=== PATIENT | male | born 1960 | race African-American/Black ===

== ENCOUNTER → 2016-11-22 | Day surgery (SDC) | payer MEDICARE, MEDICAID ==
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
[~2016-11-22] MED LIST: Buffered Lidocaine 1% SYR 3ML* 3 ML/SYR SYRINGE INTRADERM ONE; Buffered Lidocaine 1% SYR 3ML* 3 ML/SYR SYRINGE ONE; Bupivacaine 0.5% W/EPI SDV* 30 ML VIAL ONE; Ketorolac INJ* 30 MG/ML 1 ML VIAL IV PRN; Lidocaine 1% INJ* 10 MG/ML 30 ML SDV ONE; Lidocaine 2% MPF* 2 ML VIAL ONE; Midazolam* 1 MG/ML 2 ML VIAL (2 MG) ONE; Ondansetron INJ* 2 MG/ML VIAL IV PRN; Propofol* 10 MG/ML 20 ML BTL IV PUSH ONE; ceFAZolin 2 GM PREMIX (*) 2 GM/50 ML BAG IVPB ONE; fentaNYL* 50 MCG/ML 2 ML VIAL (100 MCG VIAL) IV PRN; fentaNYL* 50 MCG/ML 2 ML VIAL (100 MCG VIAL) ONE
[2016-11-22 14:44] VITALS: BP 165/95
--- NOTE | 2016-11-23 08:18 | OP ---
CC: Dr. Eng; Dr. Willie Staples OPERATIVE REPORT: DATE OF OPERATION: 11/22/16 DATE OF : 60 SURGEON: Charli Eng MD. FLAT BED KNITTER: None. ANESTHESIOLOGIST: Dr. Singh. ANESTHESIA: General anesthetic, local infiltration. PRE-OP DIAGNOSIS: Mass of left thigh. POST-OP DIAGNOSIS: Mass of left thigh. OPERATIVE PROCEDURE: Excision of mass of left thigh. DESCRIPTION OF PROCEDURE: The patient is placed in the lateral position and everything appropriatel y padded and positioned and secured to the table. Sterile prep was carried out and local anesthetic was utilized and Kristen Hugger warmer, compression stockings, and intravenous antibiotics were also i n place. An elliptical incision, approximately 5 x 10 cm, was created and lipomatous mass was multi lobulated and was excised in its entirety. The entire previous ulcerated lesion was also removed. This was sent in formalin for pathologic evaluation. The incision was closed with 4-0 Vicryl for th e subcutaneum and 3-0 Prolene for the skin. Sterile dressing was placed. He tolerated this well wa s brought to recovery in good condition. There were no complications. No drains. Pathologic speci men was left thigh mass. Sponge and instrument counts correct. Estimated blood loss was 30 mL. [id number]/[facility] #: [id number]
== END | disposition home or self-care (01) ==
LOC: OR 10:35
PROVIDERS: ATTEND Surgery
DX: D17.24 Benign lipomatous neoplasm of skin and subcutaneous tissue of left leg (principal); Z79.82 Long term (current) use of aspirin; I10 Essential (primary) hypertension; G47.33 Obstructive sleep apnea (adult) (pediatric); Z87.891 Personal history of nicotine dependence; J44.9 Chronic obstructive pulmonary disease, unspecified; R52 Pain, unspecified; Z99.81 Dependence on supplemental oxygen
CPT/HCPCS: 88304; J0690; J2250; J2704; J3010

== ENCOUNTER 2017-03-21 20:47 | Observation (INO) | payer MEDICARE, MEDICAID ==
[2017-03-21] MEDS ORDERED: cefTRIAXone(*) 1 GM in NS 0.9% 50 ML* 50 ML IVPB ONE (20:51)
[2017-03-21] MEDS ORDERED: Azithromycin IV(*) 500 MG in NS 0.9% 250 ML* 250 ML IVPB ONE (20:51)
[2017-03-21] MEDS ORDERED: methylPREDNISolone 125 MG* 2 ML VIAL IV ONE (20:51)
[2017-03-21] MEDS ORDERED: Albuterol/Ipratropium NEB.SOL* Albuterol 2.5 MG/Ipratropium 0.5 MG 3 ML INH ONE (20:52)
[2017-03-21] MEDS ORDERED: NS 0.9% 1000 ML* 1,000 ML IV SCH (21:00)
[2017-03-21 21:13] LABS: PCO2 Arterial 56 mmHg (35-45)
[2017-03-21 21:24] LABS: Hematocrit 40 % (42-52); Mean Corpuscular HGB Conc 30 g/dl (31-36); Mean Corpuscular Hemoglobin 22 pg (27-31); Mean Corpuscular Volume 73 fL (80-94); Mean Platelet Volume 10 um3 (7.4-10.4); Red Blood Count 5.46 10^6/ul (4.0-5.4); Red Cell Distribution Width 19 % (10.5-15); White Blood Count 11.4 10^3/ul (3.5-10.8)
[2017-03-21 21:28] LABS: ALT 20 U/L (7-52); Alkaline Phosphatase 73 U/L (34-104); Blood Urea Nitrogen 14 mg/dL (6-24); C Reactive Protein 2.85 mg/L (< 5.00); CO2 Carbon Dioxide 27 mmol/L (22-32); Calcium 8.9 mg/dL (8.6-10.3); Chloride 104 mmol/L (101-111); Creatine Kinase 667 U/L (10-223); EGFR African American 82.9 (>60); EGFR Non-African American 64.5 (>60); Globulin 3.3 g/dL (2-4); Glucose 121 mg/dL (70-100); Lipase 17 U/L (11.0-82.0); Magnesium 2.2 mg/dL (1.9-2.7); Sodium 140 mmol/L (133-145); Total Protein 7.3 g/dL (6.4-8.9)
[2017-03-21 21:31] LABS: Add Diff/Slide Review? Slide Review Added; Comments Flag Yes
--- NOTE | 2017-03-21 21:40 | RAD ---
HISTORY: Shortness of breath COMPARISONS: May 11, 2016 VIEWS:1: Single frontal portable view of the chest at 9:20 PM FINDINGS: LINES AND TUBES: None. CARDIOMEDIASTINAL SILHOUETTE: The cardiomediastinal silhouette is normal for portable technique. PLEURA: The costophrenic angles are sharp. No pleural abnormalities are noted. LUNG PARENCHYMA: There is prominence of the central pulmonary vasculature ABDOMEN: The upper abdomen is clear. There is no subphrenic gas. BONES AND SOFT TISSUES: No bone or soft tissue abnormalities are noted. IMPRESSION: PULMONARY VASCULAR CONGESTION
[2017-03-21 22:09] LABS: TSH (Thyroid Stimulating Horm) 1.39 mcIU/mL (0.34-5.60)
[2017-03-21 22:13] LABS: Hypochromasia 2+; Target Cells 1+
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
[2017-03-21] MEDS ORDERED: Ondansetron INJ* 2 MG/ML VIAL IV PRN (22:29)
[2017-03-21] MEDS ORDERED: Senna TAB PO PRN (22:29)
[2017-03-21] MEDS ORDERED: Docusate CAP* 100 MG PO PRN (22:29)
[2017-03-21] MEDS ORDERED: Al Hydrox/Mg Hydrox/Simet LIQ* 30 ML UDC PO PRN (22:29)
[2017-03-21] MEDS ORDERED: Acetaminophen TAB* 325 MG PO PRN (22:29)
[2017-03-21] MEDS ORDERED: Ipratropium 0.5MG/2.5ML NEB* 0.5 MG/2.5 ML NEB.SOLN INH PRN (22:33)
[2017-03-21] MEDS ORDERED: Morphine ORAL.SOLN 10 mg* 2 MG/ML UDC 5 ml PO PRN (22:33)
[2017-03-21] MEDS ORDERED: Cyclobenzaprine TAB* 10 MG PO PRN (22:35)
[2017-03-21] MEDS ORDERED: ALPRAZolam TAB* 0.5 MG PO PRN (22:35)
[2017-03-21] MEDS ORDERED: NS 0.9% 1000 ML* 1,000 ML IV ONE (22:36)
[2017-03-21 22:50] LABS: Alcohol < 10 mg/dL (<10)
[2017-03-22 00:31] LABS: Urine Bacteria Absent (Absent); Urine Bilirubin Negative (Negative); Urine Glucose Negative (Negative); Urine Nitrite Negative (Negative)
[2017-03-22 00:48] LABS: Benzodiazepine Urine Screen Presumptive Positive (None Detect)
[2017-03-22] MEDS: Morphine TAB Extended Release (*) 30 MG TAB.ER PO SCH ×2 (00:55→11:15)
[2017-03-22] MEDS: Budesonide NEB* 0.25 MG/2 ML NEB.SOLN INH SCH ×2 (01:16→09:26)
--- NOTE | 2017-03-22 01:21 | HP ---
HISTORY AND PHYSICAL: DATE OF ADMISSION: 03/21/17 TIME OF EVALUATION: 0. PRIMARY CARE PHYSICIAN: Willie Staples MD CHIEF COMPLAINT: Shortness of breath. HISTORY OF PRESENT ILLNESS: This is a 56-year-old male with past medical history of COPD and tobacco use, who presents to the emergency room with acute onset of shortness of breath, arrived here via EMS. The patient states he has been under a lot of significant stress recently. His father last year and his mother has progressively advanced Alzheimer's dementia. He was at her house doing work around her house when he developed some itching on his back. His daughter put some pain relief, anti-itch cream on it and acutely he became short of breath and could not breathe. He is not clear of other symptoms associated with it, but does not think he had any chest pain or nausea , no lip swelling, no tongue swelling. EMS was called. They placed him on BiPAP and the patient had labs, imaging. He was given DuoNeb, azithromycin, ceftriaxone, and Solu-Medrol, and was referred to the hospitalist service. On further evaluation, on my encounter, we took the BiPAP off and he is breathing calmly without any complaints of shortness of breath. He states he is overall weak. He says he has recently been seeing a injection molding process technician, Dr. Benítez, who has been titrating down his CPAP setting; he is not sure which. He denies any lower extremity swelling. No chest pain as mentioned. No nausea, vomiting, or diarrhea. No abdominal pain. Otherwise, remaining systems is negative. The patient is being admitted to [address] [place] [address] for acute onset of shortness of breath. Also, of note, he has no changes in his pills or medications or no new over-the- counter medications. PAST MEDICAL HISTORY: 1. History of COPD, complicated by emphysema and blebs and pneumothorax, states he has a history of multiple chest tubes placed, has led him to having chronic pain. 2. Chronic pain. 3. Obstructive sleep apnea, on CPAP. 4. Hypertension. 5. Anxiety. 6. The patient had an unresponsive episode back in May of 2016 in [place]. He states he was on vacation, he was found in the bathroom unresponsive. He states that it was due to taking pain medications and not using a CPAP at that time. 7. History of left hip replacement. MEDICATIONS: 1. Albuterol neb as needed. 2. Ipratropium neb as needed. 3. Budesonide neb b.i.d. 4. Albuterol MDI as needed. 5. Morphine extended release 30 mg p.o. b.i.d. 6. Morphine extended release 15 mg every 4 hours as needed for pain. 7. Alprazolam 1 mg q.6 hours as needed for anxiety. 8. Cyclobenzaprine as needed. 9. Omeprazole as needed. 10. Lisinopril 20 mg daily. 11. Atenolol at bedtime, is unclear of the dose. ALLERGIES: BUTORPHANOL, chest pain, burning in chest. FAMILY HISTORY: Father in June of 2016, unclear of the cause. Mother alive with Alzheimer's dementia. SOCIAL HISTORY: The patient as mentioned is a single parent, raising 5 children. He has been smoking for 40 years, quit 2 years ago but states he has been smoking on and off recently due to increase in stress. Rare alcohol use. His healthcare proxy is his daughter, Sirena Moore. Code status is full code. REVIEW OF SYSTEMS: As mentioned in the HPI. PHYSICAL EXAMINATION GENERAL: In no acute distress, resting comfortably. VITAL SIGNS: Temp is 98.4, pulse rate is 99, respiratory rate is 17, oxygen saturation 96% on 2 L, blood pressure 129/69. HEENT: Pupils are pinpoint and reactive, anicteric. Head: Normocephalic. Oropharynx: Mucous membranes are moist. NECK: Supple. No lymphadenopathy. RESPIRATORY: Diminished breath sounds. No wheezing, rhonchi, or rales. No increased work of breathing. CARDIAC: Regular rate and rhythm. No murmurs, rubs, or gallops. ABDOMEN: Soft, nontender, nondistended. EXTREMITIES: No clubbing, cyanosis, or edema. NEUROLOGIC: Oriented x3. No focal neurologic deficits. DIAGNOSTIC STUDIES/LAB DATA: White count 11.4, hemoglobin 12.0, hematocrit 40 , platelets 306. INR of 0.94. Blood gas: pH 7.31, PCO2 is 56, PO2 is 97. Sodium 140, potassium 4.5, bicarb 27, BUN 14, creatinine 1.17, glucose 121. Total CK is 667. Troponin is 0. TSH 1.39. BNP is 36. Radiographic data: Chest x-ray, pulmonary vascular congestion. EKG shows sinus tachycardia with no significant changes from prior EKG. ASSESSMENT AND PLAN: This is a 56-year-old male with a past medical history of chronic obstructive pulmonary disease, obstructive sleep apnea, and chronic pain , who presents to the emergency room with acute onset shortness of breath and feeling hot. Shortness of breath. Assessment: Acute onset after getting cream on his back, unclear if this was an allergic reaction, although not typical presentation without any other constitutional symptoms. He seems dramatically improved off the BiPAP. His blood work was relatively unremarkable. It does not appear to be a chronic obstructive pulmonary disease exacerbation or cardiac event. I wonder if this is a combination of anxiety in the setting of increase in stress and possibly an allergic reaction to the cream that he was given. Plan: We will admit him to telemetry, rule him out with troponins. We will continue his inhaler regimen. Hold off on any steroids at this time. I am going to check a urine tox screen and alcohol level and put in a Social Work consult for social support in the setting of high stress with significant family history of stress. CHRONIC MEDICAL PROBLEMS: 1. COPD. As mentioned, resume his inhaler regimen. 2. Obstructive sleep apnea. Continue his CPAP. 3. Anxiety. Continue his alprazolam. 4. Chronic pain. Continue his medications as prescribed. 5. Hypertension. The patient's blood pressures are low normal. We will hold his atenolol and lisinopril at this time. 6. FEN. [address] him on a heart-healthy diet. We will give him a 1 L of bolus at this time. 7. Code status. Full code. PATIENT TIME: Greater than 60 minutes was spent doing the history and physical ; more than half the time was spent in direct patient contact. CC: Willie Staples MD* [id number]/[facility] #: [id number] AJITH
[2017-03-22] MEDS: Albuterol 2.5 MG/3 ML NEB.SOL* (0.083%) INH PRN ×2 (03:44→13:16)
[2017-03-22 05:38] LABS: Hematocrit 34 % (42-52); Hemoglobin 10.4 g/dl (14.0-18.0); Mean Corpuscular HGB Conc 30 g/dl (31-36); Mean Corpuscular Hemoglobin 22 pg (27-31); Mean Platelet Volume 10 um3 (7.4-10.4); Red Blood Count 4.69 10^6/ul (4.0-5.4); Red Cell Distribution Width 19 % (10.5-15); White Blood Count 15.3 10^3/ul (3.5-10.8)
[2017-03-22 05:40] LABS: Comments Flag Yes; Mean Corpuscular Volume 74 fL (80-94)
[2017-03-22 05:52] LABS: BUN/Creatinine Ratio 14.1 (8-20); Calcium 8.4 mg/dL (8.6-10.3); EGFR African American 70.3 (>60); EGFR Non-African American 54.7 (>60); Potassium 4.5 mmol/L (3.5-5.0)
[2017-03-22] MEDS: Heparin VIAL(*) 5000 UNITS/ML VIAL (FIVE THOUSAND) SUBCUT SCH ×2 (05:56→14:26)
[2017-03-22] MEDS ORDERED: Omeprazole CAP* 20 MG PO SCH (06:00)
[2017-03-22 14:16] VITALS: BP 145/80
--- NOTE | 2017-03-22 15:20 | PN ---
Subjective Date of Service: 03/22/17 Interval History: Pt is feeling better now but states this AM he still felt like he needed to use his CPAP to help breath comfortably. Objective Active Medications: Acetaminophen (Tylenol Tab*) 650 mg PO Q4H PRN PRN Reason: FEVER/PAIN Al Hydrox/Mg Hydrox/Simethicone (Maalox Plus*) 30 ml PO Q6H PRN PRN Reason: INDIGESTION Albuterol (Ventolin 2.5 Mg/3 Ml Neb.Briana*) 2.5 mg INH Q2H PRN PRN Reason: SOB/WHEEZING Last Admin: 03/22/17 13:16 Dose: 2.5 mg Alprazolam (Xanax Tab*) 0.5 mg PO Q6H PRN PRN Reason: ANXIETY Budesonide (Pulmicort Neb*) 0.25 mg INH RT.BID [facility] Last Admin: 03/22/17 09:26 Dose: Not Given Cyclobenzaprine HCl (Flexeril Tab*) 10 mg PO BID PRN PRN Reason: SPASMS Docusate Sodium (Colace Cap*) 100 mg PO BID PRN PRN Reason: CONSTIPATION Heparin Sodium (Porcine) (Heparin Vial(*)) 5,000 units SUBCUT Q8HR [facility] Last Admin: 03/22/17 14:26 Dose: 5,000 units Sodium Chloride (Ns 0.9% 1000 Ml*) 1,000 mls @ 150 mls/hr IV PER RATE [facility] Last Admin: 03/21/17 21:00 Dose: 150 mls/hr Ipratropium [place] (Atrovent 0.5 Mg Neb.Briana*) 0.5 mg INH Q4H PRN PRN Reason: SOB/WHEEZING Last Admin: 03/22/17 13:17 Dose: 0.5 mg Morphine Sulfate (Morphine Oral.Soln 10 Mg*) 15 mg PO Q6H PRN PRN Reason: PAIN Last Admin: 03/22/17 15:08 Dose: 15 mg Morphine Sulfate (Ms Contin(*)) 30 mg PO Q12H [facility] Last Admin: 03/22/17 11:15 Dose: 30 mg Omeprazole (Prilosec Cap*) 20 mg PO 0600 [facility] Last Admin: 03/22/17 05:55 Dose: 20 mg Ondansetron HCl (Zofran Inj*) 4 mg IV Q4H PRN PRN Reason: NAUSEA/VOMITING Senna (Senokot Tab*) 1 tab PO BID PRN PRN Reason: CONSTIPATION Vital Signs 03/21/17 03/21/17 03/21/17 22:30 22:37 22:45 Temperature 98.4 F Pulse Rate 99 102 98 Respiratory 17 18 17 Rate Blood Pressure 129/69 129/69 115/80 (mmHg) O2 Sat by Pulse 96 95 Oximetry 03/21/17 03/21/17 03/22/17 22:57 23:11 00:55 Temperature 97.5 F Pulse Rate 96 88 Respiratory 18 18 20 Rate Blood Pressure 115/80 129/85 (mmHg) O2 Sat by Pulse 96 98 Oximetry 03/22/17 03/22/17 03/22/17 01:19 01:21 02:55 Temperature Pulse Rate 90 89 Respiratory 17 16 20 Rate Blood Pressure (mmHg) O2 Sat by Pulse 99 98 Oximetry 03/22/17 03/22/17 03/22/17 03:46 04:05 07:29 Temperature 97.8 F 98.3 F Pulse Rate 97 88 79 Respiratory 20 18 20 Rate Blood Pressure 148/86 140/74 (mmHg) O2 Sat by Pulse 84 98 96 Oximetry 03/22/17 03/22/17 03/22/17 08:00 11:10 11:15 Temperature 97.7 F Pulse Rate 79 Respiratory 18 20 18 Rate Blood Pressure 145/80 (mmHg) O2 Sat by Pulse 97 Oximetry 03/22/17 03/22/17 13:21 15:08 Temperature Pulse Rate 80 Respiratory 18 Rate Blood Pressure (mmHg) O2 Sat by Pulse Oximetry Oxygen Devices in Use Now: Nasal Cannula - 2L-97% Appearance: Middle aged male sitting up in bed, NAD Eyes: No Scleral Icterus Ears/Nose/Mouth/Throat: Mucous Membranes Moist Respiratory: Symmetrical Chest Expansion and Respiratory Effort, - - few bibasilar crackles, diminished breath sounds in all lung thompson Cardiovascular: NL Sounds; No Murmurs; No JVD, RRR, No Edema Abdominal: NL Sounds; No Tenderness; No Distention Extremities: No Clubbing, Cyanosis Skin: No Nodules or Sclerosis, - - Pt has scarring noted on his back from prior scratching- no obvious rash despite the patient stating his back was feeling itchy and like it was burning Neurological: Alert and Oriented x 3 Result Diagrams: 03/22/17 05:08 03/22/17 05:08 Additional Lab and Data: Lab Results 03/21/17 03/21/17 03/21/17 Range/Units 20:56 20:56 20:56 WBC 11.4 H (3.5-10.8) 10^3/ul RBC 5.46 H (4.0-5.4) 10^6/ul Hgb 12.0 L (14.0-18.0) g/dl Hct 40 L (42-52) % MCV 73 L (80-94) fL MCH 22 L (27-31) pg MCHC 30 L (31-36) g/dl RDW 19 H (10.5-15) % Plt Count 306 (150-450) 10^3/ul MPV 10 (7.4-10.4) um3 Neut % (Auto) 42.8 (38-83) % Lymph % (Auto) 44.9 (25-47) % [place] % (Auto) 8.7 (1-9) % Eos % (Auto) 3.2 (0-6) % Baso % (Auto) 0.4 (0-2) % Absolute Neuts (auto) 4.9 (1.5-7.7) 10^3/ul Absolute Lymphs (auto) 5.1 H (1.0-4.8) 10^3/ul Absolute Monos (auto) 1.0 H (0-0.8) 10^3/ul Absolute Eos (auto) 0.4 (0-0.6) 10^3/ul Absolute Basos (auto) 0 (0-0.2) 10^3/ul Absolute Nucleated RBC 0.02 10^3/ul Nucleated RBC % 0.2 Normal RBC Morphology Not Reportable Hypochromasia 2+ Target Cells 1+ INR (Anticoag Therapy) 0.94 (0.89-1.11) APTT 27.0 (26.0-36.3) seconds ABG pH (7.35-7.45) ABG pCO2 (35-45) mmHg ABG pO2 (80-100) mmHg ABG HCO3 (19-31) mmol/L ABG O2 Saturation (95-98) % ABG Base Excess (-2.0-2.0) Sodium 140 (133-145) mmol/L Potassium TNP Chloride 104 (101-111) mmol/L Carbon Dioxide 27 (22-32) mmol/L Anion Gap TNP BUN 14 (6-24) mg/dL Creatinine 1.17 (0.67-1.17) mg/dL Est GFR ( Amer) 82.9 (>60) Est GFR (Non-Af Amer) 64.5 (>60) BUN/Creatinine Ratio 12.0 (8-20) Glucose 121 H (70-100) mg/dL Lactic Acid (0.5-2.0) mmol/L Calcium 8.9 (8.6-10.3) mg/dL Magnesium 2.2 (1.9-2.7) mg/dL Total Bilirubin 0.20 (0.2-1.0) mg/dL AST TNP ALT 20 (7-52) U/L Alkaline Phosphatase 73 (34-104) U/L Total Creatine Kinase 667 H (10-223) U/L CK-MB (CK-2) 4.9 (0.6-6.3) ng/mL Troponin I 0.00 (<0.04) ng/mL C-Reactive Protein 2.85 (< 5.00) mg/L B-Natriuretic Peptide ( - 100) pg/mL Total Protein 7.3 (6.4-8.9) g/dL Albumin 4.0 (3.2-5.2) g/dL Globulin 3.3 (2-4) g/dL Albumin/Globulin Ratio 1.2 (1-3) Lipase 17 (11.0-82.0) U/L TSH 1.39 (0.34-5.60) mcIU/mL 03/21/17 03/21/17 03/21/17 Range/Units 20:56 20:56 21:05 WBC (3.5-10.8) 10^3/ul RBC (4.0-5.4) 10^6/ul Hgb (14.0-18.0) g/dl Hct (42-52) % MCV (80-94) fL MCH (27-31) pg MCHC (31-36) g/dl RDW (10.5-15) % Plt Count (150-450) 10^3/ul MPV (7.4-10.4) um3 Neut % (Auto) (38-83) % Lymph % (Auto) (25-47) % [place] % (Auto) (1-9) % Eos % (Auto) (0-6) % Baso % (Auto) (0-2) % Absolute Neuts (auto) (1.5-7.7) 10^3/ul Absolute Lymphs (auto) (1.0-4.8) 10^3/ul Absolute Monos (auto) (0-0.8) 10^3/ul Absolute Eos (auto) (0-0.6) 10^3/ul Absolute Basos (auto) (0-0.2) 10^3/ul Absolute Nucleated RBC 10^3/ul Nucleated RBC % Normal RBC Morphology Hypochromasia Target Cells INR (Anticoag Therapy) (0.89-1.11) APTT (26.0-36.3) seconds ABG pH 7.31 L (7.35-7.45) ABG pCO2 56 H (35-45) mmHg ABG pO2 97 (80-100) mmHg ABG HCO3 25.6 (19-31) mmol/L ABG O2 Saturation 97.5 (95-98) % ABG Base Excess 0.9 (-2.0-2.0) Sodium (133-145) mmol/L Potassium Chloride (101-111) mmol/L Carbon Dioxide (22-32) mmol/L Anion Gap BUN (6-24) mg/dL Creatinine (0.67-1.17) mg/dL Est GFR ( Amer) (>60) Est GFR (Non-Af Amer) (>60) BUN/Creatinine Ratio (8-20) Glucose (70-100) mg/dL Lactic Acid 1.6 (0.5-2.0) mmol/L Calcium (8.6-10.3) mg/dL Magnesium (1.9-2.7) mg/dL Total Bilirubin (0.2-1.0) mg/dL AST ALT (7-52) U/L Alkaline Phosphatase (34-104) U/L Total Creatine Kinase (10-223) U/L CK-MB (CK-2) (0.6-6.3) ng/mL Troponin I (<0.04) ng/mL C-Reactive Protein (< 5.00) mg/L B-Natriuretic Peptide 36 ( - 100) pg/mL Total Protein (6.4-8.9) g/dL Albumin (3.2-5.2) g/dL Globulin (2-4) g/dL Albumin/Globulin Ratio (1-3) Lipase (11.0-82.0) U/L TSH (0.34-5.60) mcIU/mL 03/21/17 Range/Units 21:53 WBC (3.5-10.8) 10^3/ul RBC (4.0-5.4) 10^6/ul Hgb (14.0-18.0) g/dl Hct (42-52) % MCV (80-94) fL MCH (27-31) pg MCHC (31-36) g/dl RDW (10.5-15) % Plt Count (150-450) 10^3/ul MPV (7.4-10.4) um3 Neut % (Auto) (38-83) % Lymph % (Auto) (25-47) % [place] % (Auto) (1-9) % Eos % (Auto) (0-6) % Baso % (Auto) (0-2) % Absolute Neuts (auto) (1.5-7.7) 10^3/ul Absolute Lymphs (auto) (1.0-4.8) 10^3/ul Absolute Monos (auto) (0-0.8) 10^3/ul Absolute Eos (auto) (0-0.6) 10^3/ul Absolute Basos (auto) (0-0.2) 10^3/ul Absolute Nucleated RBC 10^3/ul Nucleated RBC % Normal RBC Morphology Hypochromasia Target Cells INR (Anticoag Therapy) (0.89-1.11) APTT (26.0-36.3) seconds ABG pH (7.35-7.45) ABG pCO2 (35-45) mmHg ABG pO2 (80-100) mmHg ABG HCO3 (19-31) mmol/L ABG O2 Saturation (95-98) % ABG Base Excess (-2.0-2.0) Sodium (133-145) mmol/L Potassium 4.5 Chloride (101-111) mmol/L Carbon Dioxide (22-32) mmol/L Anion Gap BUN (6-24) mg/dL Creatinine (0.67-1.17) mg/dL Est GFR ( Amer) (>60) Est GFR (Non-Af Amer) (>60) BUN/Creatinine Ratio (8-20) Glucose (70-100) mg/dL Lactic Acid (0.5-2.0) mmol/L Calcium (8.6-10.3) mg/dL Magnesium (1.9-2.7) mg/dL Total Bilirubin (0.2-1.0) mg/dL AST 24 ALT (7-52) U/L Alkaline Phosphatase (34-104) U/L Total Creatine Kinase (10-223) U/L CK-MB (CK-2) (0.6-6.3) ng/mL Troponin I (<0.04) ng/mL C-Reactive Protein (< 5.00) mg/L B-Natriuretic Peptide ( - 100) pg/mL Total Protein (6.4-8.9) g/dL Albumin (3.2-5.2) g/dL Globulin (2-4) g/dL Albumin/Globulin Ratio (1-3) Lipase (11.0-82.0) U/L TSH (0.34-5.60) mcIU/mL Assess/Plan/Problems-Billing Mr Ahuja is a 56 yo M who has a h/o severe COPD who presented to the ER with c/ o severe sudden acute SOB after applying a pain reliever cream on his back. - Patient Problems (1) Shortness of breath Current Visit: Yes Status: Acute Code(s): R06.02 - SHORTNESS OF BREATH SNOMED Code(s): 529085627 Comment: Unclear what drove his SOB last evening. I question if this may have been an allergic reaction. His breathing is now back to baseline. I also question if his severe SOB may have been related to anxiety. The patient denies this however. (2) Emphysema/COPD Current Visit: Yes Status: Chronic Code(s): J43.9 - EMPHYSEMA, UNSPECIFIED SNOMED Code(s): 26269501 Comment: No signs of exacerbation at this time. Continue home medication regimen. (3) Anxiety Current Visit: Yes Status: Chronic Code(s): F41.9 - ANXIETY DISORDER, UNSPECIFIED SNOMED Code(s): 04932718 Comment: Continue prn benzodiazepines. (4) HTN (hypertension) Current Visit: Yes Status: Chronic Priority: High Code(s): I10 - ESSENTIAL (PRIMARY) HYPERTENSION SNOMED Code(s): 96144124 Comment: BP is under fair control. Continue current home medication regimen. (5) Sleep apnea Current Visit: Yes Status: Chronic Code(s): G47.30 - SLEEP APNEA, UNSPECIFIED SNOMED Code(s): 00052263 Comment: Continue CPAP at home settings. (6) DVT prophylaxis Current Visit: Yes Status: Acute Code(s): UCS6034 - SNOMED Code(s): 076372092 Comment: SQ heparin Status and Disposition: d/c home
--- NOTE | 2017-03-23 04:35 | DS ---
DISCHARGE SUMMARY: DATE OF ADMISSION: 03/21/17 DATE OF DISCHARGE: 03/22/17 PRIMARY CARE PROVIDER: Dr. Staples. CARRY ALL DRIVER: Dr. Benítez. PRINCIPAL DIAGNOSIS: Acute shortness of breath of unclear etiology - possible allergic reaction. SECONDARY DIAGNOSES: 1. Severe chronic obstructive pulmonary disease. 2. Anxiety. 3. Obstructive sleep apnea. 4. Hypertension. DISCHARGE MEDICATIONS: 1. MiraLax 17 g p.o. daily. 2. Budesonide 0.5 mg inhaled twice daily. 3. Atenolol 25 mg p.o. daily. 4. Omeprazole 20 mg p.o. daily. 5. Lisinopril 20 mg p.o. daily. 6. Ipratropium 1 neb inhaled q.4 hours p.r.n. shortness of breath. 7. Diazepam 5 mg p.o. q.h.s. p.r.n. anxiety. 8. Flexeril 10 mg p.o. b.i.d. p.r.n. spasm. 9. Albuterol 2 puffs inhaled q.4 hours p.r.n. shortness of breath. 10. Xanax 1 mg p.o. q.8 hours p.r.n. anxiety. HOSPITAL COURSE: Mr. Ahuja is a 56-year-old male, with a known history of severe COPD who presented to the emergency room on 03/21/17 with complaints of severe shortness of breath. The patient states that he had a usual flare of his back itching and asked his stepdaughter to apply some lotion to his back. She applied both Aveeno eczema relief lotion as well as inadvertently an arthritis pain relief cream. The patient states that within 5 minutes of having these creams applied to his back, he began to have severe shortness of breath. He states this was much more severe than even when he had collapsed lung. The patient denied any associated anxiety with this and states that this was just very severe shortness of breath. He was placed on BiPAP and brought to the emergency room. After arriving in the ER, the patient was liberated from BiPAP and was breathing quite comfortably. He was admitted for further monitoring and evaluation of his acute shortness of breath. The patient has done well since coming off the BiPAP. He did state that on the morning of discharge, he felt like he still needed the CPAP that he usually uses at home to help "get the air in." He does state that his breathing feels more comfortable now. I have explained to the patient that it is not completely clear as to what caused his severe episode of shortness of breath, but possibly an allergic reaction could explain this. I recommended that he not use the creams that were applied to his back just prior to this event happening. In terms of the itching of his back, this has been a longstanding problem he states going back what sounds to be a decade. The patient can follow up as an outpatient for this. There are no signs of COPD exacerbation. At this point, the patient is felt to be stable for discharge to home. FOLLOWUP CONCERNS: The patient is being discharged to home today, 03/22/17. He is to follow up with Dr. Staples in the next 4 to 7 days. ACTIVITY LEVEL: As tolerated. DIET: Regular. CONDITION ON DISCHARGE: Stable. TIME SPENT: Twenty five minutes was spent discharging this patient. CC: Dr. Staples; Dr. Benítez* [id number]/[facility] #: [id number] [facility]
== END 2017-03-22 17:46 | disposition home or self-care (01) ==
LOC: ED 20:47 → MEDTELE 22:29
PROVIDERS: ADMIT Pediatrics; ATTEND Hospitalist
DX: R06.02 Shortness of breath (principal); J44.9 Chronic obstructive pulmonary disease, unspecified; F41.9 Anxiety disorder, unspecified; G47.33 Obstructive sleep apnea (adult) (pediatric); I10 Essential (primary) hypertension; R00.0 Tachycardia, unspecified; Z79.899 Other long term (current) drug therapy; Z88.8 Allergy status to other drugs, medicaments and biological substances; F17.210 Nicotine dependence, cigarettes, uncomplicated
CPT/HCPCS: 36415; 36600; 71010; 80048; 80053; 80307; 80320; 81003; 81015; 82550; 82553; 82803; 83605; 83690; 83735; 83880; 84443; 84484; 85025; 85610; 85730; 86140; 87040; 93005; 94640; 94660; 94760; 94762; 96365; 96366; 96367; 96372; 96375; 99291; A9270-GY; G0378; G0480; J0456; J0696; J1644; J2930; J7644

== ENCOUNTER 2017-12-22 19:54 | Emergency (ER) | payer MEDICARE, MEDICAID ==
[2017-12-22] MEDS ORDERED: diPHENhydraMINE IV* 50 MG/ML 1 ml VIAL (BENADRYL) IV ONE (20:56)
[2017-12-22] MEDS ORDERED: methylPREDNISolone 125 MG* 2 ML VIAL IV ONE (20:57)
[2017-12-22] MEDS ORDERED: Famotidine IV* 10 MG/ML 2 ML (20 mg) IV SLOW PU ONE (20:57)
[2017-12-22] MEDS ORDERED: Albuterol/Ipratropium NEB.SOL* Albuterol 2.5 MG/Ipratropium 0.5 MG 3 ML INH ONE (20:57)
[2017-12-22] MEDS ORDERED: Albuterol 2.5 MG/3 ML NEB.SOL* (0.083%) INH ONE (20:57)
[2017-12-22] MEDS ORDERED: NS 0.9% 1000 ML* 1,000 ML IV ONE (20:58)
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
[2017-12-22 23:31] VITALS: BP 121/82
== END 2017-12-22 23:10 | disposition home or self-care (01) ==
LOC: ED 19:54
DX: T78.40XA Allergy, unspecified, initial encounter (principal); R06.02 Shortness of breath; R42 Dizziness and giddiness; Z86.79 Personal history of other diseases of the circulatory system; Z87.19 Personal history of other diseases of the digestive system; X58.XXXA Exposure to other specified factors, initial encounter
CPT/HCPCS: 94640; 94760; 96374; 96375; 99283; A9270-GY; J1200; J2930

== ENCOUNTER 2018-01-11 18:51 | Emergency (ER) | payer MEDICARE, MEDICAID ==
[2018-01-11] MEDS ORDERED: Amoxicillin/Clavulanate TAB* 500 MG PO ONE (19:44)
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
[2018-01-11 20:20] VITALS: BP 103/65
== END 2018-01-11 20:19 | disposition home or self-care (01) ==
LOC: ED 18:51
DX: R22.0 Localized swelling, mass and lump, head (principal); F17.210 Nicotine dependence, cigarettes, uncomplicated; Z88.8 Allergy status to other drugs, medicaments and biological substances
CPT/HCPCS: 99282; A9270-GY

== ENCOUNTER 2018-04-08 17:43 | Emergency (ER) | payer MEDICARE, MEDICAID ==
[2018-04-08 18:28] VITALS: BP 137/83
--- OUTSIDE RECORDS SUMMARY | 2018-04-08 18:40 | XMS REPORT ---
:1960 External Reference #:[id number] Author Organization [facility] Address [address] [address] Phone [phone] Care Team Providers Name Role Phone Willie Staples MD Primary Care Physician Unavailable Payers Type Date Identification Numbers Payment Provider Subscriber Medicare Primary Effective: Policy Number: Medicare Sergio Malik 2013 [id number] PayID: [id number] [address] [place] [address] [facility] Part B Policy Number: [id number] Medicaid Sergio Malik Group Name: 1 1 [address] PayID: [id number] [place] [address] Problems Date Description Provider Status Onset: 02/28/2015 Pulmonary emphysema Thomas Orta M.D. Active Onset: 12/07/2015 Obesity Merary Benítez MD Active Onset: 12/07/2015 Disorder of lung Merary Benítez MD Active Onset: 12/07/2015 Obstructive sleep apnea syndrome Merary Benítez MD Active Onset: 12/07/2015 Chronic obstructive lung disease Merary Benítez MD Active Family History Date Family Member(s) Problem(s) Comments General Heart Disease General cancer Onset: (06/20/2017) Father Prostate Cancer Father due to [place] () Onset: (2017) Father NC Mother dementia Siblings 2 Siblings alive and well Social History Type Date Description Comments Marital Status Single Lives With Children Occupation Disabled ETOH Use Occasionally consumes alcohol Smoking Patient is a current smoker, smokes some days Recreational Drug Use Denies Drug Use Smoking less than 10 a day per pt pt trying to quit 08/20/2017 Daily Caffeine Consumes on average 2 sodas per day Daily Caffeine Occasional tea, coffee Exercise Type/Frequency Exercises sporadically walk couple times a week Allergies, Adverse Reactions, Alerts Date Description Reaction Status Severity Comments 12/31/2014 PT Not Sure active 02/16/2015 Stadol active Medications Medication Date Status Form Strength Qnty SIG Indications Ordering Provider Nebulizer 03/05 Active Device 1unit 1 unit J44.9 s nebulizati Jackelin, on with albuterol every 6 hours and as needed Dulcolace 07/[address] 5mg bid Oxygen 01/31 Active Misc 1unit please use s o2 at Jackelin, 2l/min during exertion Lisinopril 12/06 Active Tablets 20mg 1 by mouth every day Morphine Sulfate 07/25 Active Tablets 15mg 1 by mouth every 3-4 hours as needed breakthrou gh pain Amoxicillin 05/18 Active Tablets 500mg 16tab 4 tablets 715.95 Dir lets 1 hour Arvin, before M.D. dental work Cyclobenzaprine 12/30 Active 10mg as Unknown directed as needed for muscle spasms Xanax 12/30 Active 1mg as needed 4 times a day Albuterol Sulfate 12/30 Active Nebulizer (2.5mg/3M 1 vial via L) 0.083% nebulizer 4 times daily as needed Budesonide 12/30 Active Suspension 0.25mg/2M twice a L day via nebulizer Proair HFA 12/30 Active Aerosol 108(90Bas 2 puffs by e) mouth mcg/Act every 4 hours as needed Ipratropium 12/30 Active Solution 0.02% inhale Unknown contents of 1 vial in nebulizer 4 times a day Cpap 12/30 Active as Unknown directed Morphine Sulfate Active Caps ER 50mg as Unknown ER 24HR directed. 1 in Am, 1 in PM Atenolol Active Tablets 25mg 1 by mouth every day Hydrochlorothiazi Active Tablets 25mg 1 by mouth Unknown every day Valium 00 Active Tablets 2mg 1 by mouth Unknown / prior to event and then 1 at event Hydrocortisone Active Cream 2.5% apply to Unknown / affected area twice daily Polyethylene Active Granules 3350 17gm mix Unknown Glycol 3350 /0000 with 8 oz of fluids once a day in the morning Omeprazole Active Capsules DR 20mg 1 by mouth Unknown / every day as needed Atorvastatin Active Tablets 20mg Take One Unknown Calcium Tablet By Mouth At Bedtime For Cholestero l Amlodipine Active Tablets 5mg 1 by mouth Unknown Besylate every day Doxycycline 07/26 Hx Capsules 100mg 20cap 100 mg po 491.21 Thomas Monohydr s bid for 10 , - days M.D. 12/06 Oxycodone-Acetami 04/27 Hx Tablets 5-325mg take 1 to Unknown 2 tablets - by mouth 07/25 every hours as needed pain Coumadin 04/08 Hx Tablets 2mg 30tab take 1-5 Dir s tablets as Arvin, - directed M.D. 04/18 Percocet 04/06 Hx Tablets 10-325mg 90tab 1-2 s tablets Arvin, - q4-6 hours M.D. 10/04 as needed pain Symbicort 02/28 Hx Aerosol 160-4.5mc 1unit 2 puffs 492.8 g/Act s q12 h Marivel, - Dispense 1 M.D. 07/03 refills 11 Omeprazole 12/[address] 20mg 1 by mouth every day - 12/30 Singulair 12/30 Hx Tablets 10mg 1 by mouth every day - 08/13 2-Methoxyestradio 12/30 Hx Powder Unknown /2014 - 12/30 Oxycodone W/Apap 12/30 Hx Tablets 10-325mg 1 by mouth every 8 - hours as 04/27 needed pain Prednisone 12/30 Hx Tablets 5mg as directed - 04/18 Patanol 12/30 Hx Solution 0.1% 1 drop both eyes - every day 04/18 as needed allergies Zantac 12/30 Hx Tablets 150mg 1 by mouth twice a - day as 07/03 Lyrica 12/30 Hx Capsules 25mg 1 by mouth twice a - day 07/03 Lidoderm 12/30 Hx Patches 5% topical 10 Unknown hours Bupropion HCL ER 12/30 Hx Tablets ER 150mg 1 by mouth Unknown (SR) 12HR twice a day Chantix 12/30 Hx Tablets 1mg 1 by mouth twice a - day 04/18 Sulfamethoxazole/ 12/30 Hx Tablets 800-160mg 1 by mouth Unknown Trimethoprim twice a - day 12/06 Glycolax 12/30 Hx Powder 3350NF 17g daily as needed - 07/03 Amlodipine 12/29 Hx Tablets 5mg 1 by mouth Unknown Bes every day Oxycodone-Acetami 00 Hx Tablets 5-325mg Take One Unknown nophen /0000 Tablet By Mouth Every 6 Hours as Needed For Pain Maximum Lesly Medications Administered in Office Medication Date Status Form Strength Qnty SIG Indications Ordering Provider Inj, Administered Injection Nilton Hdez Regadenoson, 017 Guerra, DO 0.1 MG FACC Technetium TC Administered Injection Nilton S. 99M 017 Guerra, DO Tetrofosmin, FACC Per Unit Dose Up To 40 Millicuries Vital Signs Date Vital Result Comment 03/10/2018 Height 70 inches 5'10" Weight 236.00 lb Heart Rate 72 /min BP Systolic Sitting 136 mmHg BP Diastolic Sitting 80 mmHg Respiratory Rate 14 /min O2 % BldC Oximetry 96 % BMI (Body Mass Index) 33.9 kg/m2 10/21/2017 Height 70 inches 5'10" Weight 255.25 lb with shoes Heart Rate 82 /min BP Systolic Sitting 126 mmHg Rue large cuff BP Diastolic Sitting 76 mmHg Rue large cuff Respiratory Rate 16 /min O2 % BldC Oximetry 97 % On Ra BMI (Body Mass Index) 36.6 kg/m2 08/20/2017 Height 70 inches 5'10" Weight 244.25 lb with shoes Heart Rate 86 /min BP Systolic Sitting 128 mmHg Rue lrg cuff BP Diastolic Sitting 86 mmHg Rue lrg cuff BP Systolic Standing 134 mmHg Rue lrg cuff BP Diastolic Standing 84 mmHg Rue lrg cuff Respiratory Rate 17 /min BMI (Body Mass Index) 35.0 kg/m2 Ejection Fraction 65% 08/08/2017-echo 07/04/2017 Height 70 inches 5'10" Weight 241.00 lb with shoes Heart Rate 92 /min BP Systolic Sitting 148 mmHg Ra lrg cuff BP Diastolic Sitting 98 mmHg Ra lrg cuff BP Systolic Standing 140 mmHg Ra lrg cuff BP Diastolic Standing 90 mmHg Ra lrg cuff BMI (Body Mass Index) 34.6 kg/m2 Ejection Fraction 60% - 65% echo 04/25/14 03/14/2017 Height 70 inches 5'10" Heart Rate 82 /min BP Systolic Sitting 132 mmHg BP Diastolic Sitting 86 mmHg Respiratory Rate 16 /min Pain Level 5 all over O2 % BldC Oximetry 93 % 12/07/2016 Heart Rate 100 /min Respiratory Rate 20 /min Body Temperature 95.6 F 11/30/2016 Heart Rate 80 /min Respiratory Rate 18 /min Body Temperature 96.7 F 11/20/2016 Height 70 inches 5'10" Weight 237.00 lb Heart Rate 84 /min BP Systolic 140 mmHg BP Diastolic 82 mmHg Respiratory Rate 18 /min Body Temperature 96.7 F BMI (Body Mass Index) 34.0 kg/m2 11/20/2016 Height 70 inches 5'10" 11/06/2016 Height 70 inches 5'10" Weight 240.00 lb Heart Rate 84 /min BP Systolic 142 mmHg BP Diastolic 76 mmHg Respiratory Rate 18 /min Body Temperature 97.9 F BMI (Body Mass Index) 34.4 kg/m2 08/14/2016 Height 70 inches 5'10" Weight 243.00 lb Heart Rate 89 /min BP Systolic 118 mmHg BP Diastolic 70 mmHg Respiratory Rate 14 /min O2 % BldC Oximetry 97 % BMI (Body Mass Index) 34.9 kg/m2 04/02/2016 Height 70 inches 5'10" Weight 243.00 lb Heart Rate 68 /min BP Systolic Sitting 120 mmHg BP Diastolic Sitting 62 mmHg Respiratory Rate 16 /min Pain Level 2 BMI (Body Mass Index) 34.9 kg/m2 02/14/2016 Height 70 inches 5'10" Weight 243.00 lb Heart Rate 96 /min BP Systolic Sitting 146 mmHg BP Diastolic Sitting 88 mmHg Respiratory Rate 18 /min O2 % BldC Oximetry 96 % BMI (Body Mass Index) 34.9 kg/m2 12/07/2015 Height 70 inches 5'10" Weight 243.00 lb Heart Rate 95 /min BP Systolic 142 mmHg BP Diastolic 96 mmHg Respiratory Rate 16 /min O2 % BldC Oximetry 95 % BMI (Body Mass Index) 34.9 kg/m2 10/05/2015 Height 70 inches 5'10" Weight 243.00 lb Pain Level 4 BMI (Body Mass Index) 34.9 kg/m2 07/26/2015 Heart Rate 91 /min BP Systolic Sitting 152 mmHg BP Diastolic Sitting 88 mmHg Respiratory Rate 20 /min O2 % BldC Oximetry 97 % 05/18/2015 Height 70 inches 5'10" Weight 243.00 lb Pain Level 7 BMI (Body Mass Index) 34.9 kg/m2 03/18/2015 Height 70 inches 5'10" Weight 243.00 lb Heart Rate 93 /min BP Systolic 151 mmHg BP Diastolic 91 mmHg Body Temperature 97.7 F BMI (Body Mass Index) 34.9 kg/m2 02/28/2015 Height 70 inches 5'10" Weight 243.50 lb Heart Rate 99 /min BP Systolic Sitting 148 mmHg BP Diastolic Sitting 96 mmHg O2 % BldC Oximetry 96 % BMI (Body Mass Index) 34.9 kg/m2 Neck Circumference in inches 17.5 02/16/2015 Height 69.5 inches 5'9.50" Weight 242.00 lb Heart Rate 94 /min BP Systolic 149 mmHg BP Diastolic 89 mmHg Pain Level 8 BMI (Body Mass Index) 35.2 kg/m2 12/31/2014 Height 71 inches 5'11" Weight 242.00 lb Heart Rate 101 /min BP Systolic Sitting 156 mmHg BP Diastolic Sitting 94 mmHg Respiratory Rate 22 /min Body Temperature 98.0 F O2 % BldC Oximetry 97 % BMI (Body Mass Index) 33.7 kg/m2 Neck Circumference in inches 17.5 Results Test Date Test Result H/L Range Note Laboratory test 11/22/2016 Surgical Pathology SEE RESULT BELOW 1 finding Laboratory test 11/06/2016 Surgical Pathology SEE RESULT BELOW 2 finding Urinalysis Profile 03/18/2015 Urine Color Yellow 3 Urine Appearance Clear 3 Urine Specific [place] 1.023 1.010-1.030 3 Urine pH 6.0 5-9 3 Urine Urobilinogen Negative Negative 3 Urine Ketones Negative Negative 3 Urine Protein Negative Negative 3 Urine Leukocytes Negative Negative 3 Urine Blood Negative Negative 3 Urine Nitrite Negative Negative 3 Urine Bilirubin Negative Negative 3 Urine Glucose Negative Negative 3 Type & Screen 03/18/2015 Patient Blood Type O Negative 3 Antibody Screen NEGATIVE 3 Basic Metabolic Panel 03/18/2015 Sodium 139 mmol/L 133-145 3 Potassium 4.5 mmol/L 3.5-5.0 3 Chloride 104 mmol/L 101-111 3 Co2 Carbon Dioxide 30 mmol/L 22-32 3 Anion Gap 5 mmol/L 2-11 3 Glucose 103 mg/dL High 70-100 3 Blood Urea Nitrogen 18 mg/dL 6-24 3 Creatinine 1.04 mg/dL 0.67-1.17 3 BUN/Creatinine Ratio 17.3 8-20 3 Calcium 9.3 mg/dL 8.6-10.3 3 Egfr Non- 74.4 >60 3 Egfr 95.7 >60 3, 4 Inr/Protime 03/18/2015 Inr 0.90 0.78-1.07 3 CBC No Diff 03/18/2015 White Blood Count 6.6 10^3/uL 4.8-10.8 3 Red Blood Count 5.10 10^6/uL 4.0-5.4 3 Hemoglobin 13.1 g/dL Low 14.0-18.0 3 Hematocrit 41 % Low 42-52 3 Mean Corpuscular Volume 80 fL 80-94 3 Mean Corpuscular Hemoglobin 26 pg Low 27-31 3 Mean Corpuscular HGB Conc 32 g/dL 31-36 3 Red Cell Distribution Width 22 % High 10.5-15 3 Platelet Count 277 10^3/uL 150-450 3 Mean Platelet Volume 10 um3 7.4-10.4 3 Surgical Pathology 09/08/2014 S RUN DATE: 09/10/ <SEE NOTE> 5 1 SEE RESULT BELOW Name: SERGIO MALIK JR : [address]: Charli Eng MD Acct: [id number] Unit: [id number] AGE: 56 Location: OR Re11/22/16 SEX: M Status: REG SDC SPEC: [id number] LISA: 11/22/16- SUBM DR: Charli Eng MD REQ: [id number] RECD: 11/22/16-1254 STATUS: SOUT _ ORDERED: LEVEL III FINAL DIAGNOSIS Left thigh, excision: -- Ulcerated lipoma with fat necrosis. -- No evidence of malignancy. PRE-OPERATIVE DIAGNOSIS Mass posterior left thigh GROSS DESCRIPTION The specimen is received in formalin labeled, Lipoma Left Thigh, and consists of an 11.0 x 10.5 by up to 3.4 cm yellow-pink irregular portion of yellow lobulated predominantly well encapsulated adipose tissue. The specimen is partially surfaced by a 9.4 x 5.6 cm brown-souza wrinkled hairbearing skin ellipse with a central 2.7 x 1.9 cm vernon- pink ulcer. The cut surface consists predominantly of yellow lobulated adipose tissue with a vernon-pink ill-defined slightly firm area measuring up to 2.4 cm, 1.6 cm from the nearest inked margin. The specimen is inked, serially sectioned and termite control service representative sections are submitted in three cassettes. Signed (signature on file) Rachael Guillen MD 05/04 1035 END OF REPORT * ML=Testing performed at Main Lab DEPARTMENT OF PATHOLOGY, [address], [place], [place] [address] Angel Ramsay M.D. Director VINOD # [id number] 2 SEE RESULT BELOW Name: SERGIO MALIK JR : [address]: Charli Eng MD Acct: [id number] Unit: [id number] AGE: 56 Location: [facility] Re11/06/16 SEX: M Status: REG REF SPEC: [id number] LISA: 11/06/16-[address]: Charli Eng MD REQ: [id number] RECD: 11/06/167573 STATUS: SOUT _ ORDERED: LEVEL IV COMMENTS: [id number] FINAL DIAGNOSIS Skin, left posterior thigh, biopsy: -- Acute cellulitis and panniculitis. -- No evidence of malignancy. POST-OPERATIVE DIAGNOSIS Posterior left thigh skin lesion, D48.5 GROSS DESCRIPTION The specimen is received in formalin labeled, Left Posterior Thigh Skin Lesion, and consists of a 0.4 cm mottled vernon circular skin punch excised to a depth of 0.3 cm. Received separately in the same container is a 1.1 x 0.6 x 0.2 cm yellow-white irregular soft tissue fragment. The skin punch is bisected and the specimen is entirely submitted in one cassette. Signed (signature on file) Rachael Guillen MD 1121 END OF REPORT * ML=Testing performed at Main Lab DEPARTMENT OF PATHOLOGY, [address] [place] [id number] Angel Ramsay M.D. Director [facility] # [id number] 3 AA SURGERY 03/22/15 4 Because ethnic data is not always readily available, this report includes an eGFR for both -Americans and non- Americans. The National Kidney Disease Education Program (NKDEP) does not endorse the use of the MDRD equation for patients that are not between the ages of 18 and 70, are , have extremes of body size, muscle mass, or nutritional status, or are non- or non-. According to the National Kidney Foundation, irrespective of diagnosis, the stage of the disease is based on the level of kidney function: Stage Description GFR(mL/min/1.73 m(2)) 1 Kidney damage with normal or decreased GFR 90 2 Kidney damage with mild decrease in GFR 60-89 3 Moderate decrease in GFR 30-59 4 Severe decrease in GFR 15-29 5 Kidney failure <15 (or dialysis) 5 RUN DATE: 09/10/14 [facility] LAB LIVE PAGE 1 RUN TIME: [address] [place] [address] Specimen Inquiry Name: SERGIO MALIK JR : [address]: German Duncan MD Acct: [id number] Unit: [id number] AGE: 54 Location: ENDO Re09/08/14 SEX: M Status: REG REF SPEC: [id number] LISA: 09/08/14-[address]: German Duncan MD REQ: [id number] RECD: 09/08/14 STATUS: HOLLI SHAHID DR: Willie Haney MANAGER RAIL _ ORDERED: LEVEL IV/2 FINAL DIAGNOSIS 1. Stomach, antrum, biopsy: A. Antral type gastric mucosa with mild chronic gastritis and reactive chemical gastropathy. B. No Helicobacter organisms seen on H E examination. 2. Esophagus, distal, biopsy: A. Squamous and columnar mucosa with chronic inflammation. B. No evidence of intestinal metaplasia or dysplasia. COMMENTS: Deeper levels of sectioning were examined for specimen 2 and support the diagnosis. CLINICAL HISTORY Nausea/vomiting, gastroesophageal reflux disease POST-OPERATIVE DIAGNOSIS Esophagus - ? short segment Little's, biopsied; stomach - hiatal hernia, mild antral gastritis biopsied; duodenum - normal bulb to 3rd portion. ? short segment Little's; hiatal hernia CONTINUED ON NEXT PAGE * ML=Testing performed at Main Lab DEPARTMENT OF PATHOLOGY, [facility] [place], [place] [address] Angel Ramsay M.D. Director CLDILSHAD # [id number] RUN DATE: 09/10/14 [facility] LAB LIVE PAGE 2 RUN TIME: [address] [facility] [address] [place], [place] [address] Specimen Inquiry Patient: SERGIO MALIK JR George [id number] (Continued) GROSS DESCRIPTION (Continued) GROSS DESCRIPTION 1. The specimen is received in formalin labeled Sergio Malik Jr., Biopsy Gastric Antrum, and consists of two portions of vernon-white tissue that measure 0.2 x 0.2 x 0.2 cm. each. Submitted entirely, one cassette. 2. The specimen is received in formalin labeled Sergio Malik Jr., Biopsy Distal Esophagus, and consists of multiple portions of vernon-white tissue that in aggregate measure 0.5 x 0.4 x 0.2 cm. Submitted entirely, one cassette. Signed (signature on file) Rachael Guillen MD 1700 END OF REPORT * ML=Testing performed at Main Lab DEPARTMENT OF PATHOLOGY, [address] [place] [address] Angel Ramsay M.D. Director [facility] # [id number] Procedures Date CPT Code Description Status 09/09/2017 74286 Diffusing Capacity Completed 09/09/2017 61953 Plethysmography Determination Lung Volumes & Per Completed Airway Resist 09/09/2017 87717 Pulmonary Stress Test Simple Completed 09/09/2017 00352 Pulmonary Function><Bronchodil Completed 08/08/2017 73035 ECHO Transthoracic, Real-Time 2D With Doppler And Color Completed Flow 08/08/2017 49188 ECHO Transthoracic, Real-Time 2D With Doppler And Color Completed Flow 07/31/2017 82501 Stress Test Completed 07/31/2017 15436 Myocardial Perfusion Imaging Tomographic (Spect) Completed Multiple Studies 07/04/2017 12462 EKG Tracing & Interpretation Completed 11/22/2016 57427 Excision Tumor Soft Tissue Thigh/Knee Subcutaneous, 3 Completed CM Or > 11/06/2016 86396 Biopsy Skin Lesion Single Completed 01/26/2016 99503 Pulmonary Function><Bronchodil Completed 01/26/2016 31839 Plethysmography Determination Lung Volumes & Per Completed Airway Resist 01/26/2016 12847 Diffusing Capacity Completed 11/14/2015 08017 EKG, Interpretation Only Completed 11/12/2015 73144 EKG, Interpretation Only Completed 04/18/2015 17313 Thoracoscopy W/Excision-Plication Bullae Completed 03/22/2015 24401 THR Total Hip Replacement Completed 03/22/2015 32876 THR Total Hip Replacement Completed 02/08/2015 49638 Polysomnography Sleep Staging 4+ Parameters W/Cpap Completed 01/12/2015 65003 Diffusing Capacity Completed 01/12/2015 96961 Plethysmography Determination Lung Volumes & Per Completed Airway Resist 01/12/2015 05687 Pulmonary Function><Bronchodil Completed 04/26/2014 63503 ECHO Transthorasic Realtime 2D W Doppler & Color Completed Flow Hosp 09/16/2013 99897 EKG, Interpretation Only Completed 01/30/2011 88303 Treadmill Interp/Report Only Completed 01/30/2011 83778 Stress Test Supervsn W/Out I/R Completed Encounters Type Date Location Provider CPT E/M Dx Office Visit 10/21/2017 [facility]ology [place]ary [place] [address] J44.9 1:30p [facility] G47.33 R09.02 E66.09 Office Visit 08/20/2017 11:20a [facility] [place] [address] R06.02 [facility] FACC Z72.0 J44.9 Office Visit 07/04/2017 1:00p [facility] [place] [address] R06.02 [facility] FACC Z72.0 R07.9 G47.33 J44.9 Office Visit 03/22/2017 2:06p [facility] Karma Cooley, [address] R06.02 Hospitalists MDelroy F41.9 J43.9 G47.33 Office Visit 03/21/2017 2:06p [facility],[place] [address] R06.02 Hospitalists F41.9 J43.9 G47.33 Office Visit 03/14/2017 1:15p [facility] [place]ary [place] [address] J44.9 [facility] G47.33 F17.210 Office Visit 08/14/2016 2:30p [facility]ology [place]ary [place] [address] J44.9 [facility] G47.33 E66.09 Office Visit 04/02/2016 2:15p [facility] Sheridan M.D. 62066 Z96.642 C.M.A. M16.12 Office Visit 02/14/2016 10:45a [facility] [place]ary [place] [address] J44.9 [facility] G47.33 E66.09 Office Visit 12/07/2015 1:45p [facility] [place]ary [place] [address] J44.9 [facility] G47.33 J98.4 E66.09 Office Visit 11/15/2015 2:21p [facility], Rafael Rojas, 06138 J16.8 Hospitalists Sherry G47.33 J44.1 I10 Office Visit 11/14/2015 2:21p [facility], Rafael Rojas, 33541 J44.1 Hospitalists Sherry R11.12 G47.33 I10 Office Visit 11/13/2015 2:20p [facility], Rafael Bob, 94180 J44.1 Hospitalists Sherry R11.12 G47.33 I10 Office Visit 11/12/2015 2:20p [facility], Franki Martinez M.D. 84994 J44.1 Hospitalists R11.12 G47.33 I10 Office Visit 10/05/2015 1:30p [facility] Eusebia Garay, 52394 Z96.642 Obie CLEMENTS-C Office Visit 08/11/2015 [facility] [address] 491.21 Assoc, Hospitalists Sherry 401.9 300.00 Office Visit 08/10/2015 12:24p [facility] Price, 59233 491.21 Assoc, Hospitalists Sherry 401.9 300.00 Office Visit 08/09/2015 [facility] 35421 491.21 Assoc, Hospitalists Sherry 786.05 401.9 Office Visit 08/08/2015 12:23p [facility], Karma Cooley, 94660 491.21 Hospitalists Sherry 401.9 Office Visit 08/07/2015 12:22p [facility] [place] [address] 491.21 Assoc, Hospitalists 786.05 401.9 Office Visit 07/26/2015 2:00p [facility]ology And Sleep Thomas Orta M.D. 86415 327.23 [facility] 491.21 Office Visit 04/28/2015 2:00p [facility] Sleep Thomas Orta M.D. 05916 492.8 [facility] 327.23 Office Visit 04/26/2015 3:27p [facility], So Mensah, 96257 496 Hospitalists N.PMarvin 338.12 327.23 300.00 Office Visit 04/18/2015 9:27a [facility], [place] [address] 496 Hospitalists 512.89 327.23 401.9 Office Visit 04/17/2015 9:27a [facility], Arie Angelito, 83703 496 Hospitalists N.P. 512.89 401.9 327.23 Office Visit 02/28/2015 2:30p [facility] Sleep Thomas Orta M.D. 34172 305.1 [facility] 492.8 327.23 Office Visit 02/16/2015 3:00p [facility] Sheridan M.D. 65062 715.35 C.M.A. Office Visit 12/31/2014 2:00p [facility] Sleep Thomas Orta M.D. 10755 327.23 [facility] 305.1 492.8 Office Visit 04/26/2014 11:34a [facility], Deejay Cristina, 71687 491.20 Hospitalists M.D. 564.00 786.51 789.07 Office Visit 04/25/2014 11:33a [facility], [place] [address] 564.00 Hospitalists 491.20 786.51 789.07 Office Visit 09/19/2013 9:50a [facility], Kristie Dunlap, 91650 560.9 Hospitalists M.D. 485 305.1 305.00 Office Visit 09/18/2013 9:49a [facility], Kristie Dunlap, 54174 560.9 Hospitalists M.D. 485 305.1 305.00 Office Visit 09/17/2013 9:49a [facility], Kristie Dunlap, 77310 560.9 Hospitalists M.D. 485 305.1 305.00 Office Visit 09/16/2013 9:49a [facility], Kristie Dunlap, 57879 560.9 Hospitalists M.D. 485 305.1 305.00 Office Visit 09/15/2013 9:48a [facility], Ceci Thrasher, 79020 560.9 Hospitalists M.D. 485 786.52 305.1 Office Visit 09/14/2013 9:47a [facility], Ceci Thrasher, 52081 560.9 Hospitalists M.D. 786.52 305.00 305.1 Office Visit 01/30/2013 10:34a [facility], Franki Martinez M.D. 95645 512.0 Hospitalists 492.0 305.00 799.02 Office Visit 01/29/2013 10:34a [facility], Franki Martinez M.D. 14445 512.0 Hospitalists 492.0 305.00 799.02 Office Visit 01/28/2013 10:34a [facility], Franki Martinez M.D. 86933 512.0 Hospitalists 492.0 305.00 799.02 Office Visit 01/26/2013 10:33a [facility], Franki Martinez M.D. 30969 512.0 Hospitalists 492.0 305.00 799.02 Office Visit 01/25/2013 12:35p [facility] Wyatt Greenberg, 54900 512.0 Assoc, Hospitalists Sherry Hospitalist 492.0 305.00 799.02 Office Visit 01/24/2013 10:33a [facility] Wyatt Greenberg, 84389 512.0 Assoc, Hospitalists Sherry Hospitalist 492.0 305.00 Office Visit 01/23/2013 12:34p [facility], Nixon Barrera 49759 512.0 Hospitalists Sherry Ferrara 799.02 492.0 305.00 Office Visit 01/22/2013 12:34p [facility], Nixon Barrera 63800 512.0 Hospitalists Sherry Ferrara 799.02 492.0 305.00 Office Visit 01/21/2013 12:33p [facility], Ceci Thrasher, 65254 512.0 Hospitalists Sherry 799.02 492.0 305.00 Office Visit 01/20/2013 10:12a [facility], Deejay Cristina, 73096 491.21 Hospitalists Sherry 512.0 Office Visit 01/19/2013 10:12a [facility], Deejay Cristina, 39011 491.21 Hospitalists Sherry 303.00 512.0 303.90 Office Visit 01/18/2013 10:12a [facility], Deejay Cristina, 56716 491.21 Hospitalists Sherry 303.00 303.90 Office Visit 01/17/2013 10:11a [facility], Deejay Cristina, 67913 491.21 Hospitalists Sherry 303.00 303.90 512.0 Office Visit 08/06/2009 1:00a [facility] Deejay Cristina, 65581 493.92 Ass, Hospitaldianelys Powell Office Visit 08/05/2009 1:45a [facility] Deejay Cristina, 14004 493.92 Ass, Hospitaldianelys Powell Office Visit 08/04/2009 1:00a [facility] Ceci Thrasher, 56902 493.92 [facility] Hospitalists Sherry Plan of Care Future Appointment(s):09/11/2018 1:45 pm - Merary Benítez MD at [facility]03/10/2018 - So Mensah, N.P.J44.9 Chronic obstructive pulmonary disease, unspecifiedNew Xrays:CT Chest W/ONew Orders:6 Minute WalkPFTW/Spirometry Vol Pre/Post Bronchdilat Dlco CompleteFollow up:6 mo OV ColfxzQ92.33 Obstructive sleep apnea (adult) (pediatric)R09.02 Hypoxemia
[2018-04-08 18:57] LABS: ABS Basophils 0.1 10^3/ul (0-0.2); ABS Eosinophils 0.3 10^3/ul (0-0.6); ABS Lymphocytes 2.7 10^3/ul (1.0-4.8); ABS Monocytes 0.8 10^3/ul (0-0.8); ABS Neutrophils 5.5 10^3/ul (1.5-7.7); ABS Nucleated RBC 0 10^3/ul; Eosinophil % 3.2 % (0-6); Hematocrit 38 % (42-52); Lymphocyte % 29.1 % (25-47); Mean Corpuscular HGB Conc 32 g/dl (31-36); Mean Corpuscular Hemoglobin 26 pg (27-31); Mean Corpuscular Volume 80 fL (80-94); Mean Platelet Volume 9.9 um3 (7.4-10.4); Nucleated Red Blood Cells % 0.1; Platelet Count 317 10^3/ul (150-450); Red Blood Count 4.68 10^6/ul (4.0-5.4); Red Cell Distribution Width 16 % (10.5-15); White Blood Count 9.3 10^3/ul (3.5-10.8)
[2018-04-08 19:01] LABS: EGFR Non-African American 66.9 (>60)
--- NOTE | 2018-04-08 19:05 | RAD ---
INDICATION: Left-sided facial numbness COMPARISON: CT of the brain January 13, 2015 TECHNIQUE: Contiguous axial sections of the brain were obtained from the skull base to the vertex without contrast. FINDINGS: The ventricles, cisterns and sulci are within normal limits. The souza-white matter differentiation is adequately maintained and there is no sulcal effacement. No significant focal abnormality or mass effect is present. There is no evidence for intracranial hemorrhage. No significant focal osseous abnormality is present. The visualized portion of the paranasal sinuses appear clear. The mastoid air cells are well aerated bilaterally. IMPRESSION: Normal CT of the brain.
[2018-04-08] MEDS ORDERED: ValACYclovir (*) 1 GM TAB PO ONE (19:23)
[2018-04-08] MEDS ORDERED: predniSONE TAB* 20 MG PO ONE (19:25)
--- NOTE | 2018-04-08 19:38 | RAD ---
INDICATION: Left-sided facial numbness COMPARISON: Chest x-ray dated March 21, 2017 TECHNIQUE: Single AP portable view of the chest was obtained. FINDINGS: Image quality is compromised due to the relative inferiority of a portable chest x-ray. The heart and mediastinum exhibit normal size and contour. The lungs are grossly clear. There is no evidence of a large pleural effusion. Visualized bones are normal for the patient's age. IMPRESSION: No radiographic evidence for acute cardiopulmonary abnormality on this portable chest x-ray.
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
== END 2018-04-08 19:56 | disposition home or self-care (01) ==
LOC: ED 17:43
DX: G51.0 Bell's palsy (principal); I10 Essential (primary) hypertension; J44.9 Chronic obstructive pulmonary disease, unspecified; F17.210 Nicotine dependence, cigarettes, uncomplicated; Z79.899 Other long term (current) drug therapy; Z88.8 Allergy status to other drugs, medicaments and biological substances
CPT/HCPCS: 36415; 70450; 71045; 80053; 80320; 82550; 83605; 84443; 84484; 85025; 86618; 93005; 99283; A9270-GY; G0480; J7512

== ENCOUNTER 2019-09-14 14:31 | Inpatient (IN) | payer MEDICARE, MEDICAID ==
--- OUTSIDE RECORDS SUMMARY | 2019-09-14 14:55 | XMS REPORT | Continuity of Care Document ---
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 Onset: 04/03/2006 Asthma without status asthmaticus Willie Staples M.D. Onset: 04/03/2006 Anxiety state Willie Staples M.D. Onset: 04/03/2006 Dysthymia Willie Staples M.D. Onset: 04/03/2006 Chronic obstructive lung disease Willie Staples M.D. Onset: 09/08/2010 Benign essential hypertension Willie Staples M.D. Onset: 03/12/2011 Benign prostatic hypertrophy without outflow Willie Staples M.D. Onset: obstruction Acute bronchitis Willie Staples M.D. Onset: 10/23/2011 Pain in thoracic spine Willie Staples M.D. Onset: 06/24/2012 Chest pain Willie Staples M.D. Onset: 06/24/2012 Neuralgia Willie Staples M.D. Onset: 06/24/2012 Gastroesophageal reflux disease Willie Staples M.D. Onset: 09/05/2012 Eruption Willie Staples M.D. Onset: 11/04/2012 Spontaneous tension pneumothorax Willie Staples M.D. Onset: 02/09/2013 Deficiency anemias Willie Staples M.D. Onset: 03/10/2013 Benign neoplasm of skin Willie Staples M.D. Onset: 09/01/2013 Intestinal obstruction Willie Staples M.D. Onset: 09/22/2013 Depressive disorder Willie Staples M.D. Onset: 04/06/2014 Acute exacerbation of chronic obstructive Willie Staples M.D. Onset: 2013 airways disease Obstructive sleep apnea syndrome Willie Staples M.D. Onset: 06/29/2014 Acute sinusitis Willie Staples M.D. Onset: 12/13/2014 Malaise and fatigue Willie Staples M.D. Onset: 12/13/2014 Arthralgia of the pelvic region and thigh Willie Staples M.D. Onset: 2014 Essential hypertension Willie Staples M.D. Onset: 09/30/2015 Cramp and spasm Willie Staples M.D. Onset: 11/22/2015 Severe persistent asthma with (acute) Willie Staples M.D. Onset: 09/07/2016 exacerbation Edema Willie Staples M.D. Onset: 04/22/2017 Uncomplicated severe persistent asthma Willie Staples M.D. Onset: 05/06/2017 Anemia Willie Staples M.D. Onset: 06/17/2017 Hyperlipidemia Willie Staples M.D. Onset: 08/20/2017 Myalgia, unspecified site Wlilie Staples M.D. Onset: 09/30/2018 Other hyperlipidemia Willie Staples M.D. Onset: 12/09/2018 Social History Type Date Description Comments Sex Unknown Tobacco Use Start: Unknown Nonsmoker Tobacco Use Start: Unknown End: Unknown Former Cigarette Smoker 1 Pack Daily ETOH Use Occasional Tobacco Use Start: Unknown Patient is a current smoker, smokes some days Allergies, Adverse Reactions, Alerts Active Allergies Reaction Severity Comments Date Stadol 05/27/2008 Lactose (Intolerance) 12/05/2009 Medications Active Medications SIG Qnty Indications Ordering Provider Date Alprazolam Take One Tablet 120tabs Maykel Palma, 08/06/2019 1mg Tablets By Mouth Four M.D. Times A Day as Needed For Anxiety . Maximum Daily Dose = 4 Sulfamethoxazole/Trim 1 by mouth twice 30tabs Aliya Giles 08/06/2019 ethoprim DS a day DUSTIN Bar 800-160mg Tablets Prednisone Take 3 Tablets 20tabs G51.0 Maykel Palma, 03/11/2019 20mg Tablets By Mouth Daily M.D. For 3 Days, 2 Tabs. Daily For 3 Days, 1 Tab. Daily For 3 Days, 1/2 Tab. Daily For 4 Days J44.1 Epipen 2-Parvez use as directed 2unvianney L50.0 Willie Sanchez 12/23/2017 0.3mg/0.3ML Solution Sherry Staples Auto-Inject Amlodipine Besylate Take One Tablet By 30tabs I10 Willie Sanchez 08/20/2017 5mg Tablets Mouth Every Day Sherry Staples For High Blood Pressure Atorvastatin Calcium Take One Tablet By 30tabs Willie Sanchez 07/31/2017 20mg Tablets Mouth AT Bedtime Sherry Staples For Cholesterol Hydrochlorothiazide Take One Tablet By 30tabs I10 Willie Sanchez 04/22/2017 25mg Tablets Mouth Every Day Sherry Staples For High Blood Pressure Atenolol Take One Tablet By 30tabs Willie Sanchez 04/05/2017 50mg Tablets Mouth Every Night Sherry Staples For High Blood Pressure Valium 1 by mouth i hour 3tabs Willie Sanchez 03/04/2017 5mg Tablets prior to event and Sherry Staples then i at event Hydrocortisone apply sparingly to 30gm Lee ElkinsMarvin 03/04/2017 2.5% Cream affected BACK Sherry Pennington areas 2 x day Polyethylene Glycol 3350 Use One Capful 527unvianney Sanchez 05/31/2016 3350NF (17GMS) In 8Oz Of Sherry Staples Powder Liquid Daily Omeprazole 1 by mouth every 30caps Willie Sanchez 10/27/[address] hanna Staples M.D. Nebulizer Set Up And use as directed bryan Sanchez 06/06/2015 Tubing Code J45.909 lexa Staples M.D. [id number] Cpap Mask as directed bryan Sanchez 11/02/2014 diagnosis-sleep Midura, M.D. apnea Proair HFA Inhale Two Puffs 8.5units I10 Willie Sanchez 09/24/2012 108(90Base) mcg/Act By Mouth Every 4 Sherry Staples Aerosol Hours as Needed For Cough Cyclobenzaprine HCL Take One To Two 30tabs Willie Sanchez 06/24/2012 10mg Tablets Tablets By Mouth Sherry Staples AT Bedtime For Muscle Spasm Ipratropium [place] inhale the 375units J44.1 Lee Thacker 05/28/2012 0.02% contents of one Sherry Pennington Solution vial via nebulizer four times a day as needed for copd = j44.1 - last seen 12/23/17 - duration: li Albuterol Sulfate inhale the 375units J45.909 Lee Thacker 03/17/2012 (2.5mg/3ML) contents of one Sherry Pennington 0.083% Nebulizer vial via nebulizer four times a day as needed J44.1 Lyrica 1 po bid Unknown Capsules Morphine Sulfate ER 1 po bid Unknown 30mg Caps ER 24HR Oxygen Therapy O2 @ 2L prn and qhs Unknown Budesonide use one vial via 360units J45.909 Lee Thacker 0.5mg/2ML nebulizer two times Sherry Pennington Suspension a day J44.1 Lisinopril Take One Tablet By 30tabs Willie Staples M.D. 20mg Tablets Mouth Every Day For Blood Pressure Immunizations CPT Code Status Date Vaccine Lot # [id number] Given 12/09/2018 Influenza Virus Vaccine, Recombinant Dna, [id number] [place] [address] Given 08/20/2017 Influenza Vac, Quadrivalent, Slit Virus, Im [id number] 09707 Given 09/07/2016 Influenza Vac, Quadrivalent, Slit Virus, Im [id number] 31693 Given 11/01/2014 Influenza vac quadrivalent preservative free 6 [id number] months and up 54590 Given 09/08/2010 Pneumococcal Immunization [id number] 67842 Given 09/08/2010 DO Not Use Split Influenza Virus Vaccine [id number] 30548 Given 09/26/2005 DO Not Use Split Influenza Virus Vaccine [id number] Given 11/29/2004 Pneumococcal Immunization Vital Signs Date Vital Result Comment 08/06/2019 7:07pm BP Systolic 120 mmHg BP Diastolic 60 mmHg Heart Rate 90 /min Body Temperature 99.0 F Respiratory Rate 18 /min O2 % BldC Oximetry 93 % Weight 232.00 lb 03/11/2019 3:19pm BP Systolic 128 mmHg BP Diastolic 78 mmHg Heart Rate 80 /min Body Temperature 98.1 F Respiratory Rate 18 /min Weight 241.00 lb Results Test Date Facility Test Result H/L Range Note Comprehensive Metabolic 03/11/2019 Chai Elyssa(fma) Sodium 143 mEq/L 134-149 Prof Potassium 4.6 mEq/L 3.6-5.5 Chloride 103 mEq/L 94-112 Carbon Dioxide 29 mEq/L 21-32 Glucose 107 mg/dL High 70-105 BUN 15 mg/dL 6-26 Creatinine 1.2 mg/dL 0.6-1.4 BUN/Creat Ratio 12.5 CALC 8.0-36.0 Calcium 9.2 mg/dL 8.6-10.2 Total Protein 6.5 g/dL 6.4-8.3 Albumin 4.2 g/dL 3.8-5.5 Globulin 2.3 g/dL 2.0-4.8 A/G Ratio 1.8 CALC 0.6-2.3 Alk. Phosphatase 63 U/L 22-95 Alt (SGPT) 43 U/L High 7-35 Ast (Sgot) 35 U/L High 5-34 Total Bilirubin 0.3 mg/dL 0.2-1.3 GFR Non- >60 ml/min/1.73m^ >=60 GFR >60 ml/min/1.73m^ >=60 Lipid Profile 03/11/2019 Paula Elyssa(fma) Cholesterol 137 mg/dL 120- 200 Triglycerides 172 mg/dL 30-200 HDL Cholesterol 28 mg/dL Low 30-70 LDL (Calculated) 75 CALC 0-129 VLDL Cholesterol 34 mg/dL 0-50 HDL Risk Factor 4.9 CALC High 0.0-4.4 Procedures Date Code Description Status 02/27/2017 [id number] Colonoscopy Completed 09/05/2011 [id number] Colonoscopy Completed Medical Devices Description No Information Available Encounters Type Date Location Provider Dx Diagnosis Office Visit 03/11/2019 Main Office ALVINA Brooks J44.9 Chronic obstructive 3:00p pulmonary disease, unspecified E78.49 Other hyperlipidemia Assessments Date Code Description Provider 08/06/2019 J44.9 Chronic obstructive pulmonary disease, Aliya Bar, EXERCISE PHYSIOLOGIST unspecified 08/06/2019 R53.83 Other fatigue Aliya Bar, DUSTIN 08/06/2019 R06.02 Shortness of breath Aliya Bar, DUSTIN 03/11/2019 J44.9 Chronic obstructive pulmonary disease, ALVINA Brooks unspecified 03/11/2019 E78.49 Other hyperlipidemia ALVINA Brooks Plan of Treatment 08/06/2019 - Aliya Bar NPJ44.9 Chronic obstructive pulmonary disease, unspecifiedNew Xrays:Chest 2 Views, Ordered: 08/06/19Comments:Get the chest x- ray done on Saturday or Saturday if you're not improving. Start the prednisone right away.Call DENNIS if condition changes/worsens in any wayR53.83 Other ujwgzxqE66.02 Shortness of breathAllNew Medication:Alprazolam 1 mg - Take One Tablet By Mouth Four Times A Day as Needed For Anxiety . Maximum Daily Dose = 4Sulfamethoxazole/Trimethoprim DS 800-160 mg - 1 by mouth twice a dayComments: 1. Patient has been queried about patient's goals/preferences and functional/ lifestyle goals at relevant visits. If relevant, describe: Has been discussed, noted above2. Treatment goals as explainedto the patient: see above3. Are there barriers to meeting treatment goals? Yes If Yes, please describe: Barriers include possible insurance limits, disease process, and difficulty with lifestyle changes4. Self-Management goals as described to the patient: Yes , see above As always, we strongly encourage a healthy diet and making physical activity a part of your every day life. If you have questions about how or where to start, please contact the office. Functional Status Description No Information Available Mental Status Description No Information Available Referrals Description No Information Available
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
[2019-09-14] MEDS ORDERED: Dexamethasone IV* 4 MG/ML 1 ML (4 MG) IV SLOW PU ONE (15:56)
[2019-09-14] MEDS ORDERED: Albuterol/Ipratropium NEB.SOL* Albuterol 2.5 MG/Ipratropium 0.5 MG 3 ML INH ONE ×2 (15:56→17:57)
[2019-09-14 16:36] LABS: ABS Basophils 0.1 10^3/ul (0-0.2); ABS Eosinophils 0.4 10^3/ul (0-0.6); ABS Lymphocytes 1.8 10^3/ul (1.0-4.8); ABS Monocytes 0.6 10^3/ul (0-0.8); ABS Neutrophils 5.3 10^3/ul (1.5-7.7); Eosinophil % 4.6 %; Hematocrit 35 % (42-52); Mean Corpuscular HGB Conc 31 g/dL (31-36); Mean Corpuscular Hemoglobin 25 pg (27-31); Mean Corpuscular Volume 81 fL (80-94); Mean Platelet Volume 9.1 fL (7.4-10.4); Nucleated Red Blood Cells % 0.1; Platelet Count 321 10^3/uL (150-450); Red Blood Count 4.36 10^6 /uL (4.18-5.48); Red Cell Distribution Width 17 % (10-15); White Blood Count 8.1 10^3/uL (3.5-10.8)
[2019-09-14 17:07] LABS: Albumin 4.2 g/dL (3.2-5.2); Albumin/Globulin Ratio 1.6 (1-3); BUN/Creatinine Ratio 12.7 (8-20); C Reactive Protein 1.91 mg/L (<8.01); Calcium 9.2 mg/dL (8.6-10.3); EGFR African American 76.5 (>60); EGFR Non-African American 63.2 (>60); Globulin 2.7 g/dL (2-4); Potassium 4.1 mmol/L (3.5-5.0); Total Bilirubin 0.2 mg/dL (0.2-1.0); Total Protein 6.9 g/dL (6.4-8.9)
[2019-09-14] MEDS ORDERED: Naltrexone TAB* 50 MG TAB PO SCH (21:00)
[2019-09-14] MEDS ORDERED: Magnesium Sulfate 2 GM IV* 2 GM/50 ML BAG IVPB ONE (21:01)
[2019-09-14] MEDS ORDERED: Albuterol/Ipratropium NEB.SOL* Albuterol 2.5 MG/Ipratropium 0.5 MG 3 ML INH SCH (22:00)
[2019-09-14] MEDS: Pregabalin CAP(*) 25 MG PO SCH (23:03)
[2019-09-14] MEDS: Atorvastatin* 20 MG TAB PO SCH (23:03)
[2019-09-14] MEDS: Melatonin 3 MG TAB PO SCH (23:03)
[2019-09-14] MEDS: Docusate CAP* 100 MG PO SCH (23:04)
[2019-09-14] MEDS: ALPRAZolam TAB* 0.5 MG PO PRN (23:04)
[2019-09-14] MEDS: Morphine TAB Extended Release (*) 30 MG TAB.ER PO SCH (23:04)
[2019-09-14] MEDS: Albuterol/Ipratropium NEB.SOL* Albuterol 2.5 MG/Ipratropium 0.5 MG 3 ML INH SCH (23:04)
[2019-09-14] MEDS: Cyclobenzaprine TAB* 10 MG PO PRN (23:04)
[2019-09-14] MEDS: Budesonide NEB* 0.5 MG/2 ML NEB.SOLN INH SCH (23:04)
[2019-09-14] MEDS: Enoxaparin(*) 40 MG/0.4 ML SYR SUBCUT SCH (23:08)
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
[2019-09-15] MEDS: HYDROcodone/ACETAMIN 5-325 MG* 1 TAB PO PRN ×4 (00:17→15:49)
[2019-09-15] MEDS: Albuterol/Ipratropium NEB.SOL* Albuterol 2.5 MG/Ipratropium 0.5 MG 3 ML INH SCH ×6 (03:26→23:00)
[2019-09-15 07:42] LABS: ABS Lymphocytes 1.6 10^3/ul (1.0-4.8); ABS Monocytes 0.6 10^3/ul (0-0.8); ABS Neutrophils 8.4 10^3/ul (1.5-7.7); Hematocrit 34 % (42-52); Hemoglobin 10.8 g/dL (14.0-18.0); Lymphocyte % 15.3 %; Mean Corpuscular HGB Conc 32 g/dL (31-36); Mean Corpuscular Hemoglobin 25 pg (27-31); Mean Corpuscular Volume 81 fL (80-94); Mean Platelet Volume 9.2 fL (7.4-10.4); Nucleated Red Blood Cells % 0.1; Platelet Count 337 10^3/uL (150-450); Red Blood Count 4.23 10^6 /uL (4.18-5.48); Red Cell Distribution Width 17 % (10-15); White Blood Count 10.7 10^3/uL (3.5-10.8)
[2019-09-15] MEDS: Atenolol TAB* 50 MG PO SCH (07:50)
[2019-09-15] MEDS: Pantoprazole TAB * 40 MG TAB PO SCH (07:51)
[2019-09-15] MEDS: Morphine TAB Extended Release (*) 30 MG TAB.ER PO SCH ×2 (07:51→21:37)
[2019-09-15] MEDS: predniSONE TAB* 20 MG PO SCH (07:51)
[2019-09-15] MEDS: Pregabalin CAP(*) 25 MG PO SCH ×2 (07:51→21:37)
[2019-09-15] MEDS: Lisinopril TAB* 10 MG PO SCH (07:51)
[2019-09-15] MEDS: Hydrochlorothiazide TAB* 25 MG PO SCH (07:52)
[2019-09-15] MEDS: Docusate CAP* 100 MG PO SCH ×2 (07:52→21:37)
[2019-09-15] MEDS: amLODIPine TAB* 5 MG PO SCH (07:52)
[2019-09-15 07:58] LABS: BUN/Creatinine Ratio 14.2 (8-20); Calcium 8.6 mg/dL (8.6-10.3); EGFR African American 86.5 (>60); EGFR Non-African American 71.5 (>60); Potassium 4.1 mmol/L (3.5-5.0)
[2019-09-15] MEDS: Budesonide NEB* 0.5 MG/2 ML NEB.SOLN INH SCH ×2 (07:59→19:20)
[2019-09-15] MEDS ORDERED: Polyethylene Glycol 3350* 17 GM PACKET PO PRN (09:00)
--- NOTE | 2019-09-15 15:25 | ECHO ---
*[facility]* [place] [address] Fax #: [phone] Transthoracic Echocardiogram Patient: Sergio Ahuja : 1960 Study Date: 09/15/2019 Age: 59 Gender: M HR: 83 bpm Height: 70 in /177.8 cm BSA: 2.31 m^2 Weight: 231.5 lb /105.2 kg BMI: 33.3 kg/m^2 *Manual Writer: * Clare Novak RDCS RN *Referring Physician: * Aliya Hansen *Reading Physician: * Phoenix Dinh MD Indications: SOB. Pulmonary Hypertension. History: Chronic obstructive pulmonary disease. Migraines. ETOH and substance abuse in the past. LLUVIA on CPAP. Risk factors: Former tobacco use. Hypertension. Obese. Conclusions Summary: - Left ventricle: Systolic function is hyperdynamic. The estimated ejection fraction is 65-70%. There is turbulence and increased velocities in the left ventricular outflow tract, measuring up to 3.1 m/sec using CW with dagger profiles during Valsalva. There is no apparent systolic anterior motion of the mitral valve. Wall motion is normal; there are no regional wall motion abnormalities. - Right ventricle: Systolic function is normal. - Mitral valve: There is trace regurgitation. - Aortic valve: There is no evidence of stenosis. There is no significant regurgitation. - Tricuspid valve: There is trace regurgitation. - Pericardium, extracardiac: There is no pericardial effusion. - Pulmonary arteries: Systolic pressure can not be accurately estimated. - Compared to study of 09/06/14, the left ventricle function and valve structures are the same. The left ventricle outflow turbulence is new. Study data: Transthoracic echocardiogram. Procedure: Transthoracic echocardiography was performed. Image quality was fair. The study was technically limited due to body habitus and COPD. Complete 2D, spectral Doppler, and color flow Doppler. Location: Bedside. Patient status: Observation. Patient room number: 410-02. Rhythm: Normal sinus rhythm. Findings Left ventricle: The cavity size is normal. Wall thickness is mildly increased. Systolic function is hyperdynamic. The estimated ejection fraction is 65-70%. There is turbulence and increased velocities in the left ventricular outflow tract, measuring up to 3.1 m/sec using CW with dagger profiles during Valsalva. There is no apparent systolic anterior motion of the mitral valve. Wall motion is normal; there are no regional wall motion abnormalities. There is no consistent Doppler evidence of clinically significant diastolic dysfunction. Right ventricle: The cavity size is normal. Systolic function is normal. Left atrium: The atrium is normal in size. Right atrium: The atrium is normal in size. Mitral valve: The leaflets are mildly thickened. There is no evidence of stenosis. There is trace regurgitation. Aortic valve: The valve is trileaflet. The leaflets are mildly thickened. There is no evidence of stenosis. There is no significant regurgitation. Tricuspid valve: The valve is structurally normal. There is no evidence of stenosis. There is trace regurgitation. Pulmonic valve: The valve is structurally normal. There is no evidence of stenosis. There is trace regurgitation. Aorta: Aortic root: The aortic root is not dilated. Ascending aorta: The ascending aorta is not well visualized. Aortic arch: The aortic arch is not dilated. Pericardium: There is no pericardial effusion. Pulmonary arteries: Not well visualized. Systolic pressure can not be accurately estimated. Systemic veins: Inferior vena cava: The vessel is normal in size. There is (>= 50%) respiratory change in the IVC dimension. Measurements Left ventricle Value Ref Right atrium Value Ref DEBI, LAX 4.3 cm 4.2 - ML dim, ES, A4C 3.8 cm 2.6 - 4.4 5.8 SI dim, ES, A4C 5.1 cm 3.4 - 5.3 ESD, LAX 2.8 cm 2.5 - Estimated RAP 3 mm Hg --------- 4.0 FS, LAX 36 % 25 - 43 Aortic valve Value Ref IVS/PW, ED, LAX 1.00 -------- Peak v, S 2 m/sec --------- PW, ED (H) 1.1 cm 0.6 - VTI, S 40.2 cm --------- 1.0 Mean grad, S 8.0 mm Hg --------- IVS/PW, ED 1 -------- Peak grad, S 16.0 mm Hg --------- E', lat lamine, TDI (L) 8.0 cm/sec >=10.0 LVOT/AV, VTI ratio 0.74 --- ------ E/e', lat lamine, TDI 13 -------- E', med lamine, TDI 8.0 cm/sec >=7.0 Mitral valve Value Ref E/e', med lamine, TDI 13 -------- Peak E 1.05 m/sec ------ --- E', avg, TDI 8.0 cm/sec -------- Peak A 1.19 m/sec ------ --- E/e', avg, TDI 13 <=14 Decel time 283 ms --- ------ Peak grad, D 4.4 mm Hg --------- LVOT Value Ref Peak E/A ratio 0.88 --------- Peak nasra, S 1.6 m/sec -------- VTI, S 29.9 cm -------- Pulmonic valve Value Ref Peak grad, S 10 mm Hg -------- Peak v, S 0.92 m/sec --------- Mean grad, S 6 mm Hg -------- Peak grad, S 3.4 mm Hg --------- Ventricular septum Value Ref Aortic root Value Ref IVS, ED (H) 1.1 cm 0.6 - Root diam 3.0 cm <4.4 1.0 Aortic arch Value Ref Right ventricle Value Ref Arch diam 3.2 cm --------- DEBI minor ax, A4C 3.2 cm 1.9 - mid 3.5 Decending aorta Value Ref Toni peak nasra 1.02 m/sec --------- Left atrium Value Ref LA ID 4.0 cm -------- Inferior vena cava Value Ref SI dim ES, LAX 4.0 cm -------- Diam 1.3 cm --------- ML dim, A4C 3.9 cm -------- SI dim, A4C 5.2 cm -------- Vol, ES, 2-p 54 ml -------- Vol/bsa, ES, 2-p 23 ml/m^2 16 - 34 Legend: (L) and (H) lorene values outside specified reference range. Prepared and electronically signed by Phoenix Dinh MD 09/15/2019 15:24
[2019-09-15] MEDS: ALPRAZolam TAB* 0.5 MG PO PRN (17:51)
--- NOTE | 2019-09-15 18:32 | PN ---
Subjective Date of Service: 09/15/19 Interval History: I noted on last visit in April 2019 with [facility] Pulmonology that patient was advised to trial using Anoro inhaler. Patient tells me he did not end up trying it because he felt anxious about medication changes. He uses his ipratropium nebulizers TID and budesonide nebs BID. Adjusting med rec to reflect this. Nursing tells me patient has been dyspneic while talking. He endorses this, and dyspneic with exertion. His breathing overall feels comfortable at rest if he is not talking. Continues to have productive cough. Denies fever/chills, chest pain, abd pain, dizziness. Objective Active Medications: Hydrocodone Bitart/Acetaminophen ([place] 5-325 Tab*) 2 tab PO Q4H PRN PRN Reason: PAIN - MODERATE Last Admin: 09/15/19 15:49 Dose: 2 tab Albuterol/Ipratropium (Duoneb (Albuterol 2.5 Mg/Ipratropium 0.5 Mg)) 1 neb INH [id number] AWAKE [facility] Last Admin: 09/15/19 15:55 Dose: 1 neb Alprazolam (Xanax Tab*) 1 mg PO QID PRN PRN Reason: ANXIETY Last Admin: 09/15/19 17:51 Dose: 1 mg Amlodipine Besylate (Norvasc Tab*) 5 mg PO DAILY [facility] Last Admin: 09/15/19 07:52 Dose: 5 mg Atenolol (Tenormin Tab*) 50 mg PO DAILY [facility] Last Admin: 09/15/19 07:50 Dose: 50 mg Atorvastatin Calcium (Lipitor*) 20 mg PO BEDTIME [facility] Last Admin: 09/14/19 23:03 Dose: 20 mg Budesonide (Pulmicort Neb*) 0.5 mg INH BID [facility] Last Admin: 09/15/19 07:59 Dose: 0.5 mg Cyclobenzaprine HCl (Flexeril Tab*) 10 mg PO BEDTIME PRN PRN Reason: SPASMS - MUSCLE Last Admin: 09/14/19 23:04 Dose: 10 mg Docusate Sodium (Colace Cap*) 100 mg PO BID [facility] Last Admin: 09/15/19 07:52 Dose: 100 mg Enoxaparin Sodium (Lovenox(*)) 40 mg SUBCUT Q24H [facility] Last Admin: 10/28/19 23:08 Dose: 40 mg Hydrochlorothiazide (Hydrodiuril Tab*) 25 mg PO DAILY [facility] Last Admin: 09/15/19 07:52 Dose: 25 mg Lisinopril (Prinivil Tab*) 20 mg PO DAILY [facility] Last Admin: 09/15/19 07:51 Dose: 20 mg Melatonin (Melatonin) 3 mg PO BEDTIME [facility] Last Admin: 09/14/19 23:03 Dose: 3 mg Montelukast Sodium (Singulair Tab*) 10 mg PO BEDTIME [facility] Morphine Sulfate (Ms Contin(*)) 60 mg PO Q12H [facility] Last Admin: 09/15/19 07:51 Dose: 60 mg Pantoprazole Sodium (Protonix Tab*) 40 mg PO DAILY [facility] Last Admin: 09/15/19 07:51 Dose: 40 mg Polyethylene Glycol/Electrolytes (Miralax*) 17 gm PO DAILY PRN PRN Reason: CONSTIPATION Prednisone (Deltasone Tab*) 40 mg PO DAILY [facility] Stop: 09/20/19 08:59 Last Admin: 09/15/19 07:51 Dose: 40 mg Pregabalin (Lyrica Cap(*)) 25 mg PO BID [facility] Last Admin: 09/15/19 07:51 Dose: 25 mg Vital Signs - 8 hr 09/15/19 09/15/19 09/15/19 10:56 11:15 11:41 Temperature 98.3 F Pulse Rate 85 92 Respiratory 16 20 20 Rate Blood Pressure 119/66 (mmHg) O2 Sat by Pulse 93 92 Oximetry 09/15/19 09/15/19 09/15/19 12:45 15:15 15:49 Temperature 98.2 F Pulse Rate 87 Respiratory 18 18 18 Rate Blood Pressure 124/70 (mmHg) O2 Sat by Pulse 95 Oximetry 09/15/19 09/15/19 09/15/19 15:57 16:39 17:51 Temperature Pulse Rate 96 Respiratory 16 18 20 Rate Blood Pressure (mmHg) O2 Sat by Pulse 92 Oximetry Oxygen Devices in Use Now: Nasal Cannula Appearance: Obese, black male who appears older than stated age, sitting on side of bed, mildly dyspneic when speaking Eyes: No Scleral Icterus, - - PERRL Ears/Nose/Mouth/Throat: Mucous Membranes Moist Neck: NL Appearance and Movements; NL JVP Respiratory: Symmetrical Chest Expansion and Respiratory Effort, - - not using accessory muscles with respirations; expiratory wheezing throughout, diminished breath sounds Cardiovascular: NL Sounds; No Murmurs; No JVD, RRR Abdominal: - - abd soft, nontender, nondistended Extremities: No Edema, No Clubbing, Cyanosis Skin: No Rash or Ulcers Neurological: Alert and Oriented x 3, NL Muscle Strength and Tone Result Diagrams: 09/15/19 07:13 09/15/19 07:13 Assess/Plan/Problems-Billing Assessment: 59 yo male with PMHx COPD on 2L O2 with exertion, hx of PTX and pulmonary blebs , LLUVIA on CPAP, HTN, migraines, chronic pain presents with SOB and paroxysmal nocturnal dyspnea. - Patient Problems (1) COPD exacerbation Current Visit: Yes Status: Acute Code(s): J44.1 - CHRONIC OBSTRUCTIVE PULMONARY DISEASE W (ACUTE) EXACERBATION SNOMED Code(s): 303262523 Comment: -patient has not had a COPD exacerbation requiring hospitalization in >3 years -has been on budesonide and ipratropium nebulizers with good compliance -paroxysmal nocturnal dyspnea is likely related to COPD, however echo ordered to r/o cardiac involvement. New finding of ventricular output turbulence, will d /w cardiology -continue prednisone, scheduled duonebs, budesonide, and new singulair -ordered flutter valve and mucinex -on 2L oxygen with good oxygen saturations, will attempt to wean. Uses 2L only with exertion at home (2) Chronic pain Current Visit: Yes Status: Acute Code(s): G89.29 - OTHER CHRONIC PAIN SNOMED Code(s): 30034269 Comment: -patient has chronic epigastric pain which radiates along bilateral rib cages -continue home morphine and lyrica (3) Anxiety Current Visit: No Status: Chronic Code(s): F41.9 - ANXIETY DISORDER, UNSPECIFIED SNOMED Code(s): 25502827 Comment: -Continue prn benzodiazepines. (4) HTN (hypertension) Current Visit: No Status: Chronic Priority: High Code(s): I10 - ESSENTIAL (PRIMARY) HYPERTENSION SNOMED Code(s): 16854375 Comment: -normotensive -continue atenolol, amlodipine, hctz (5) Sleep apnea Current Visit: No Status: Chronic Code(s): G47.30 - SLEEP APNEA, UNSPECIFIED SNOMED Code(s): 17651350 Comment: -Continue CPAP at home settings. (6) Full code status Current Visit: No Status: Acute Code(s): Z78.9 - OTHER SPECIFIED HEALTH STATUS SNOMED Code(s): 162884580 (7) DVT prophylaxis Current Visit: No Status: Acute Priority: High Code(s): WTE5425 - SNOMED Code(s): 041013163 Comment: -lovenox Status and Disposition: inpatient pending further improvement
[2019-09-15] MEDS: Montelukast Sodium TAB* 10 MG PO SCH (21:37)
[2019-09-15] MEDS: Melatonin 3 MG TAB PO SCH (21:38)
[2019-09-15] MEDS: Atorvastatin* 20 MG TAB PO SCH (21:38)
[2019-09-15] MEDS: Cyclobenzaprine TAB* 10 MG PO PRN (21:38)
[2019-09-15] MEDS: guaiFENesin ER TAB 600 MG PO SCH (21:38)
[2019-09-15] MEDS: Enoxaparin(*) 40 MG/0.4 ML SYR SUBCUT SCH (21:39)
[2019-09-16] MEDS: HYDROcodone/ACETAMIN 5-325 MG* 1 TAB PO PRN ×3 (01:23→16:13)
[2019-09-16] MEDS: Albuterol/Ipratropium NEB.SOL* Albuterol 2.5 MG/Ipratropium 0.5 MG 3 ML INH SCH ×6 (02:54→23:50)
[2019-09-16] MEDS: ALPRAZolam TAB* 0.5 MG PO PRN ×2 (07:02→21:14)
[2019-09-16] MEDS: Budesonide NEB* 0.5 MG/2 ML NEB.SOLN INH SCH ×3 (08:09→19:00)
[2019-09-16] MEDS: Pregabalin CAP(*) 25 MG PO SCH ×2 (09:41→21:11)
[2019-09-16] MEDS: Hydrochlorothiazide TAB* 25 MG PO SCH (09:42)
[2019-09-16] MEDS: Morphine TAB Extended Release (*) 30 MG TAB.ER PO SCH ×2 (09:43→21:09)
--- NOTE | 2019-09-16 09:44 | PN ---
Subjective Date of Service: 09/16/19 Interval History: Patient reports he was quite out of breath yesterday evening when he bent down to flower buncher or picker something he dropped on the floor, which was surprising to him. He states that his productive cough is less frequent and less productive. He does still feel short of breath at rest and especially with minimal exertion. Denies fever/chills, chest pain, abd pain. Objective Active Medications: Hydrocodone Bitart/Acetaminophen ([place] 5-325 Tab*) 2 tab PO Q6HR PRN PRN Reason: PAIN - SEVERE Last Admin: 09/16/19 01:23 Dose: 2 tab Albuterol/Ipratropium (Duoneb (Albuterol 2.5 Mg/Ipratropium 0.5 Mg)) 1 neb INH [id number] AWAKE [facility] Last Admin: 09/16/19 08:09 Dose: 1 neb Alprazolam (Xanax Tab*) 1 mg PO QID PRN PRN Reason: ANXIETY Last Admin: 09/16/19 07:02 Dose: 1 mg Amlodipine Besylate (Norvasc Tab*) 5 mg PO DAILY [facility] Last Admin: 09/15/19 07:52 Dose: 5 mg Atenolol (Tenormin Tab*) 50 mg PO DAILY [facility] Last Admin: 09/15/19 07:50 Dose: 50 mg Atorvastatin Calcium (Lipitor*) 20 mg PO BEDTIME [facility] Last Admin: 09/15/19 21:38 Dose: 20 mg Budesonide (Pulmicort Neb*) 0.5 mg INH BID [facility] Last Admin: 09/16/19 08:09 Dose: 0.5 mg Cyclobenzaprine HCl (Flexeril Tab*) 10 mg PO BEDTIME PRN PRN Reason: SPASMS - MUSCLE Last Admin: 09/15/19 21:38 Dose: 10 mg Docusate Sodium (Colace Cap*) 100 mg PO BID [facility] Last Admin: 09/15/19 21:37 Dose: 100 mg Enoxaparin Sodium (Lovenox(*)) 40 mg SUBCUT Q24H [facility] Last Admin: 09/15/19 21:39 Dose: 40 mg Guaifenesin (Mucinex*) 600 mg PO BID [facility] Last Admin: 09/15/19 21:38 Dose: 600 mg Hydrochlorothiazide (Hydrodiuril Tab*) 25 mg PO DAILY [facility] Last Admin: 09/15/19 07:52 Dose: 25 mg Lisinopril (Prinivil Tab*) 20 mg PO DAILY [facility] Last Admin: 09/15/19 07:51 Dose: 20 mg Melatonin (Melatonin) 3 mg PO BEDTIME [facility] Last Admin: 09/15/19 21:38 Dose: 3 mg Montelukast Sodium (Singulair Tab*) 10 mg PO BEDTIME [facility] Last Admin: 09/15/19 21:37 Dose: 10 mg Morphine Sulfate (Ms Contin(*)) 60 mg PO Q12H [facility] Last Admin: 09/15/19 21:37 Dose: 60 mg Pantoprazole Sodium (Protonix Tab*) 40 mg PO DAILY [facility] Last Admin: 09/15/19 07:51 Dose: 40 mg Polyethylene Glycol/Electrolytes (Miralax*) 17 gm PO DAILY PRN PRN Reason: CONSTIPATION Prednisone (Deltasone Tab*) 40 mg PO DAILY [facility] Stop: 09/20/19 08:59 Last Admin: 09/15/19 07:51 Dose: 40 mg Pregabalin (Lyrica Cap(*)) 25 mg PO BID [facility] Last Admin: 09/15/19 21:37 Dose: 25 mg Vital Signs - 8 hr 09/16/19 09/16/19 09/16/19 02:55 03:29 04:06 Temperature 97.1 F Pulse Rate 98 73 Respiratory 16 18 19 Rate Blood Pressure 124/72 (mmHg) O2 Sat by Pulse 96 96 Oximetry 09/16/19 09/16/19 09/16/19 07:02 07:26 08:11 Temperature 97.5 F Pulse Rate 69 68 Respiratory 20 18 18 Rate Blood Pressure 123/77 (mmHg) O2 Sat by Pulse 98 98 Oximetry Oxygen Devices in Use Now: CPAP Appearance: Black male, laying upright in hospital bed, appearing in NAD Eyes: No Scleral Icterus, - - PERRL Ears/Nose/Mouth/Throat: Mucous Membranes Moist Neck: NL Appearance and Movements; NL JVP Respiratory: Symmetrical Chest Expansion and Respiratory Effort, - - not dyspneic with speaking today; expiratory wheezing unchanged from yesterday throughout Cardiovascular: NL Sounds; No Murmurs; No JVD, RRR Abdominal: - - abd soft, nontender, nondistended Extremities: No Edema, No Clubbing, Cyanosis, - - neg calf tenderness Skin: No Rash or Ulcers Neurological: Alert and Oriented x 3, NL Muscle Strength and Tone Result Diagrams: 09/15/19 07:13 09/15/19 07:13 Diagnostic Imaging: Transthoracic Echocardiogram Study Date: 09/15/2019 Findings Left ventricle: The cavity size is normal. Wall thickness is mildly increased. Systolic function is hyperdynamic. The estimated ejection fraction is 65-70%. There is turbulence and increased velocities in the left ventricular outflow tract, measuring up to 3.1 m/sec using CW with dagger profiles during Valsalva. There is no apparent systolic anterior motion of the mitral valve. Wall motion is normal; there are no regional wall motion abnormalities. There is no consistent Doppler evidence of clinically significant diastolic dysfunction. Right ventricle: The cavity size is normal. Systolic function is normal. Left atrium: The atrium is normal in size. Right atrium: The atrium is normal in size. Mitral valve: The leaflets are mildly thickened. There is no evidence of stenosis. There is trace regurgitation. Aortic valve: The valve is trileaflet. The leaflets are mildly thickened. There is no evidence of stenosis. There is no significant regurgitation. Tricuspid valve: The valve is structurally normal. There is no evidence of stenosis. There is trace regurgitation. Pulmonic valve: The valve is structurally normal. There is no evidence of stenosis. There is trace regurgitation. Aorta: Aortic root: The aortic root is not dilated. Ascending aorta: The ascending aorta is not well visualized. Aortic arch: The aortic arch is not dilated. Pericardium: There is no pericardial effusion. Pulmonary arteries: Not well visualized. Systolic pressure can not be accurately estimated. Systemic veins: Inferior vena cava: The vessel is normal in size. There is (>= 50%) respiratory change in the IVC dimension. Assess/Plan/Problems-Billing Assessment: 59 yo male with PMHx COPD on 2L O2 with exertion, hx of PTX and pulmonary blebs , LLUVIA on CPAP, HTN, migraines, chronic pain presents with SOB and paroxysmal nocturnal dyspnea. - Patient Problems (1) COPD exacerbation Current Visit: Yes Status: Acute Code(s): J44.1 - CHRONIC OBSTRUCTIVE PULMONARY DISEASE W (ACUTE) EXACERBATION SNOMED Code(s): 977712337 Comment: -patient has not had a COPD exacerbation requiring hospitalization in >3 years -has been on budesonide and ipratropium nebulizers with good compliance -paroxysmal nocturnal dyspnea is likely related to COPD and not cardiac etiology. New finding of ventricular output turbulence on TTE, which is not significant in this clinical scenario. 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 The LV function is unchanged from prior echo. -continue prednisone, scheduled duonebs, budesonide, new singulair, mucinex, flutter valve -on 2L oxygen with good oxygen saturations at rest today, will wean. Uses 2L with significant exertion at home. Appears significantly less dyspneic at rest and with speaking today which is an improvement. (2) Chronic pain Current Visit: Yes Status: Acute Code(s): G89.29 - OTHER CHRONIC PAIN SNOMED Code(s): 96970390 Comment: -patient has chronic epigastric pain which radiates along bilateral rib cages -continue home morphine and lyrica (3) Anxiety Current Visit: No Status: Chronic Code(s): F41.9 - ANXIETY DISORDER, UNSPECIFIED SNOMED Code(s): 27427830 Comment: -Continue prn benzodiazepines. (4) HTN (hypertension) Current Visit: No Status: Chronic Priority: High Code(s): I10 - ESSENTIAL (PRIMARY) HYPERTENSION SNOMED Code(s): 05918213 Comment: -normotensive -continue atenolol, amlodipine, hctz (5) Sleep apnea Current Visit: No Status: Chronic Code(s): G47.30 - SLEEP APNEA, UNSPECIFIED SNOMED Code(s): 80943662 Comment: -Continue CPAP at home settings. (6) Full code status Current Visit: No Status: Acute Code(s): Z78.9 - OTHER SPECIFIED HEALTH STATUS SNOMED Code(s): 998687220 (7) DVT prophylaxis Current Visit: No Status: Acute Priority: High Code(s): WFT4600 - SNOMED Code(s): 526866830 Comment: -lovenox Status and Disposition: inpatient pending further improvement
[2019-09-16] MEDS: predniSONE TAB* 20 MG PO SCH (09:53)
[2019-09-16] MEDS: Lisinopril TAB* 10 MG PO SCH (09:54)
[2019-09-16] MEDS: guaiFENesin ER TAB 600 MG PO SCH ×2 (09:54→21:10)
[2019-09-16] MEDS: Docusate CAP* 100 MG PO SCH ×2 (09:54→21:10)
[2019-09-16] MEDS: Pantoprazole TAB * 40 MG TAB PO SCH (09:55)
[2019-09-16] MEDS: amLODIPine TAB* 5 MG PO SCH (09:55)
[2019-09-16] MEDS: Atenolol TAB* 50 MG PO SCH (09:56)
[2019-09-16] MEDS: Enoxaparin(*) 40 MG/0.4 ML SYR SUBCUT SCH (21:09)
[2019-09-16] MEDS: Montelukast Sodium TAB* 10 MG PO SCH (21:11)
[2019-09-16] MEDS: Atorvastatin* 20 MG TAB PO SCH (21:11)
[2019-09-16] MEDS: Cyclobenzaprine TAB* 10 MG PO PRN (23:06)
[2019-09-16] MEDS: Melatonin 3 MG TAB PO SCH (23:06)
[2019-09-17] MEDS: HYDROcodone/ACETAMIN 5-325 MG* 1 TAB PO PRN ×3 (00:28→14:25)
[2019-09-17] MEDS: Albuterol/Ipratropium NEB.SOL* Albuterol 2.5 MG/Ipratropium 0.5 MG 3 ML INH SCH ×5 (04:19→19:19)
[2019-09-17] MEDS: Budesonide NEB* 0.5 MG/2 ML NEB.SOLN INH SCH ×2 (07:22→19:21)
[2019-09-17] MEDS: Morphine TAB Extended Release (*) 30 MG TAB.ER PO SCH ×2 (07:43→21:41)
[2019-09-17] MEDS: Pantoprazole TAB * 40 MG TAB PO SCH (08:50)
[2019-09-17] MEDS: Hydrochlorothiazide TAB* 25 MG PO SCH (08:50)
[2019-09-17] MEDS: Lisinopril TAB* 10 MG PO SCH (08:50)
[2019-09-17] MEDS: Atenolol TAB* 50 MG PO SCH (08:50)
[2019-09-17] MEDS: predniSONE TAB* 20 MG PO SCH (08:50)
[2019-09-17] MEDS: Docusate CAP* 100 MG PO SCH ×2 (08:50→21:44)
[2019-09-17] MEDS: guaiFENesin ER TAB 600 MG PO SCH ×2 (08:50→21:42)
[2019-09-17] MEDS: Pregabalin CAP(*) 25 MG PO SCH ×2 (08:51→21:43)
[2019-09-17] MEDS: amLODIPine TAB* 5 MG PO SCH (08:51)
[2019-09-17] MEDS: ALPRAZolam TAB* 0.5 MG PO PRN ×3 (08:54→21:41)
[2019-09-17] MEDS ORDERED: Albuterol/Ipratropium NEB.SOL* Albuterol 2.5 MG/Ipratropium 0.5 MG 3 ML INH SCH (13:00)
--- NOTE | 2019-09-17 19:31 | PN ---
Subjective Date of Service: 09/17/19 Interval History: Patient feels improved today but continues to have dyspnea on exertion. Dyspnea at rest is resolved. Productive cough improving. Denies fever/chills, abd pain, n/v. His chronic epigastric pain has been worse than baseline today. Objective Active Medications: Hydrocodone Bitart/Acetaminophen ([place] 5-325 Tab*) 2 tab PO Q6HR PRN PRN Reason: PAIN - SEVERE Last Admin: 09/17/19 14:25 Dose: 2 tab Albuterol/Ipratropium (Duoneb (Albuterol 2.5 Mg/Ipratropium 0.5 Mg)) 1 neb INH [id number] AWAKE [facility] Last Admin: 09/17/19 19:19 Dose: 1 neb Alprazolam (Xanax Tab*) 1 mg PO QID PRN PRN Reason: ANXIETY Last Admin: 09/17/19 14:29 Dose: 1 mg Amlodipine Besylate (Norvasc Tab*) 5 mg PO DAILY [facility] Last Admin: 09/17/19 08:51 Dose: 5 mg Atenolol (Tenormin Tab*) 50 mg PO DAILY [facility] Last Admin: 09/17/19 08:50 Dose: 50 mg Atorvastatin Calcium (Lipitor*) 20 mg PO BEDTIME [facility] Last Admin: 09/16/19 21:11 Dose: 20 mg Budesonide (Pulmicort Neb*) 0.5 mg INH BID [facility] Last Admin: 09/17/19 19:21 Dose: 0.5 mg Cyclobenzaprine HCl (Flexeril Tab*) 10 mg PO BEDTIME PRN PRN Reason: SPASMS - MUSCLE Last Admin: 09/16/19 23:06 Dose: 10 mg Docusate Sodium (Colace Cap*) 100 mg PO BID [facility] Last Admin: 09/17/19 08:50 Dose: 100 mg Enoxaparin Sodium (Lovenox(*)) 40 mg SUBCUT Q24H [facility] Last Admin: 09/16/19 21:09 Dose: 40 mg Guaifenesin (Mucinex*) 600 mg PO BID [facility] Last Admin: 09/17/19 08:50 Dose: 600 mg Hydrochlorothiazide (Hydrodiuril Tab*) 25 mg PO DAILY [facility] Last Admin: 09/17/19 08:50 Dose: 25 mg Lisinopril (Prinivil Tab*) 20 mg PO DAILY [facility] Last Admin: 09/17/19 08:50 Dose: 20 mg Melatonin (Melatonin) 3 mg PO BEDTIME [facility] Last Admin: 09/16/19 23:06 Dose: 3 mg Montelukast Sodium (Singulair Tab*) 10 mg PO BEDTIME [facility] Last Admin: 09/16/19 21:11 Dose: 10 mg Morphine Sulfate (Ms Contin(*)) 60 mg PO Q12H [facility] Last Admin: 09/17/19 07:43 Dose: 60 mg Pantoprazole Sodium (Protonix Tab*) 40 mg PO DAILY [facility] Last Admin: 09/17/19 08:50 Dose: 40 mg Polyethylene Glycol/Electrolytes (Miralax*) 17 gm PO DAILY PRN PRN Reason: CONSTIPATION Prednisone (Deltasone Tab*) 40 mg PO DAILY [facility] Stop: 09/20/19 08:59 Last Admin: 09/17/19 08:50 Dose: 40 mg Pregabalin (Lyrica Cap(*)) 25 mg PO BID [facility] Last Admin: 09/17/19 08:51 Dose: 25 mg Vital Signs - 8 hr 09/17/19 09/17/19 09/17/19 11:35 14:11 14:25 Temperature 97.9 F Pulse Rate 61 Respiratory 18 18 18 Rate Blood Pressure 120/70 (mmHg) O2 Sat by Pulse 97 Oximetry 09/17/19 09/17/19 09/17/19 14:29 14:56 15:41 Temperature 97.9 F Pulse Rate 72 76 Respiratory 18 18 20 Rate Blood Pressure 125/76 (mmHg) O2 Sat by Pulse 98 95 Oximetry 09/17/19 09/17/19 17:07 19:22 Temperature Pulse Rate 89 Respiratory 18 18 Rate Blood Pressure (mmHg) O2 Sat by Pulse 98 Oximetry Oxygen Devices in Use Now: None Appearance: Obese, black male, laying upright in bed, in NAD Eyes: No Scleral Icterus Ears/Nose/Mouth/Throat: Mucous Membranes Moist Respiratory: Symmetrical Chest Expansion and Respiratory Effort, - - expiratory wheezes, more prominent on right side than left, less severe than day prior Cardiovascular: NL Sounds; No Murmurs; No JVD, RRR Abdominal: - - abd soft, nontender, nondistended Extremities: No Edema, No Clubbing, Cyanosis, - - no calf tenderness Skin: No Rash or Ulcers Neurological: Alert and Oriented x 3, NL Muscle Strength and Tone Result Diagrams: 09/15/19 07:13 09/15/19 07:13 Diagnostic Imaging: Transthoracic Echocardiogram Study Date: 09/15/2019 Findings Left ventricle: The cavity size is normal. Wall thickness is mildly increased. Systolic function is hyperdynamic. The estimated ejection fraction is 65-70%. There is turbulence and increased velocities in the left ventricular outflow tract, measuring up to 3.1 m/sec using CW with dagger profiles during Valsalva. There is no apparent systolic anterior motion of the mitral valve. Wall motion is normal; there are no regional wall motion abnormalities. There is no consistent Doppler evidence of clinically significant diastolic dysfunction. Right ventricle: The cavity size is normal. Systolic function is normal. Left atrium: The atrium is normal in size. Right atrium: The atrium is normal in size. Mitral valve: The leaflets are mildly thickened. There is no evidence of stenosis. There is trace regurgitation. Aortic valve: The valve is trileaflet. The leaflets are mildly thickened. There is no evidence of stenosis. There is no significant regurgitation. Tricuspid valve: The valve is structurally normal. There is no evidence of stenosis. There is trace regurgitation. Pulmonic valve: The valve is structurally normal. There is no evidence of stenosis. There is trace regurgitation. Aorta: Aortic root: The aortic root is not dilated. Ascending aorta: The ascending aorta is not well visualized. Aortic arch: The aortic arch is not dilated. Pericardium: There is no pericardial effusion. Pulmonary arteries: Not well visualized. Systolic pressure can not be accurately estimated. Systemic veins: Inferior vena cava: The vessel is normal in size. There is (>= 50%) respiratory change in the IVC dimension. Assess/Plan/Problems-Billing Assessment: 59 yo male with PMHx COPD on 2L O2 with exertion, hx of PTX and pulmonary blebs , LLUVIA on CPAP, HTN, migraines, chronic pain presents with SOB and paroxysmal nocturnal dyspnea. - Patient Problems (1) COPD exacerbation Current Visit: Yes Status: Acute Code(s): J44.1 - CHRONIC OBSTRUCTIVE PULMONARY DISEASE W (ACUTE) EXACERBATION SNOMED Code(s): 305752443 Comment: -patient has not had a COPD exacerbation requiring hospitalization in >3 years -has been on budesonide and ipratropium nebulizers with good compliance -paroxysmal nocturnal dyspnea is likely related to COPD and not cardiac etiology. New finding of ventricular output turbulence on TTE, which is not significant in this clinical scenario. 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 The LV function is unchanged from prior echo. -continue prednisone, scheduled duonebs, budesonide, new singulair, mucinex, flutter valve -good O2 sat on RA at rest. Uses 2L with significant exertion at home. Greatly improved today but still with significant wheezing (2) Chronic pain Current Visit: Yes Status: Acute Code(s): G89.29 - OTHER CHRONIC PAIN SNOMED Code(s): 71466464 Comment: -patient has chronic epigastric pain which radiates along bilateral rib cages -continue home morphine and lyrica (3) Anxiety Current Visit: No Status: Chronic Code(s): F41.9 - ANXIETY DISORDER, UNSPECIFIED SNOMED Code(s): 44166540 Comment: -Continue prn benzodiazepines. (4) HTN (hypertension) Current Visit: No Status: Chronic Priority: High Code(s): I10 - ESSENTIAL (PRIMARY) HYPERTENSION SNOMED Code(s): 37084044 Comment: -normotensive -continue atenolol, amlodipine, hctz (5) Sleep apnea Current Visit: No Status: Chronic Code(s): G47.30 - SLEEP APNEA, UNSPECIFIED SNOMED Code(s): 56722496 Comment: -Continue CPAP at home settings. (6) Full code status Current Visit: No Status: Acute Code(s): Z78.9 - OTHER SPECIFIED HEALTH STATUS SNOMED Code(s): 898067583 (7) DVT prophylaxis Current Visit: No Status: Acute Priority: High Code(s): BXS2405 - SNOMED Code(s): 747360782 Comment: -lovenox Status and Disposition: inpatient pending further improvement
[2019-09-17] MEDS: Atorvastatin* 20 MG TAB PO SCH (21:42)
[2019-09-17] MEDS: Montelukast Sodium TAB* 10 MG PO SCH (21:43)
[2019-09-17] MEDS: Enoxaparin(*) 40 MG/0.4 ML SYR SUBCUT SCH (21:44)
[2019-09-17] MEDS: Melatonin 3 MG TAB PO SCH (23:46)
[2019-09-17] MEDS: Cyclobenzaprine TAB* 10 MG PO PRN (23:46)
[2019-09-18] MEDS: Albuterol/Ipratropium NEB.SOL* Albuterol 2.5 MG/Ipratropium 0.5 MG 3 ML INH SCH ×2 (00:25→07:39)
[2019-09-18] MEDS: HYDROcodone/ACETAMIN 5-325 MG* 1 TAB PO PRN ×2 (01:23→08:50)
[2019-09-18 07:21] VITALS: BP 121/65
[2019-09-18] MEDS: Budesonide NEB* 0.5 MG/2 ML NEB.SOLN INH SCH (07:39)
[2019-09-18] MEDS: Hydrochlorothiazide TAB* 25 MG PO SCH (07:55)
[2019-09-18] MEDS: predniSONE TAB* 20 MG PO SCH (07:55)
[2019-09-18] MEDS: guaiFENesin ER TAB 600 MG PO SCH (07:55)
[2019-09-18] MEDS: Docusate CAP* 100 MG PO SCH (07:55)
[2019-09-18] MEDS: Morphine TAB Extended Release (*) 30 MG TAB.ER PO SCH (07:55)
[2019-09-18] MEDS: Pregabalin CAP(*) 25 MG PO SCH (07:55)
[2019-09-18] MEDS: amLODIPine TAB* 5 MG PO SCH (07:55)
[2019-09-18] MEDS: Lisinopril TAB* 10 MG PO SCH (07:57)
[2019-09-18] MEDS: Atenolol TAB* 50 MG PO SCH (07:57)
[2019-09-18] MEDS: Pantoprazole TAB * 40 MG TAB PO SCH (07:57)
--- NOTE | 2019-09-18 15:18 | DS ---
CC: Dr. Staples * DISCHARGE SUMMARY: DATE OF ADMISSION: 09/14/19 DATE OF DISCHARGE: 09/18/19 ATTENDING PHYSICIAN WHILE IN THE HOSPITAL: Dr. Ceci Thrasher * (dictated by LICO Webber). PRIMARY CARE PROVIDER: Dr. Staples. PRIMARY DIAGNOSIS: Chronic obstructive pulmonary disease exacerbation. SECONDARY DIAGNOSES: 1. Chronic obstructive pulmonary disease, uses 2 L of oxygen p.r.n. for exertion. 2. History of pulmonary blebs. 3. History of previous pneumothorax. 4. Chronic pain in the epigastric region and below the ribcage. 5. Obstructive sleep apnea, on CPAP with 2 L of oxygen at night. 6. Hypertension. 7. Migraines. 8. Depression. 9. Anxiety. 10. Osteoarthritis. 11. Gastroesophageal reflux disease. 12. Nephrolithiasis. 13. History of prior alcohol abuse and substance use. 14. Hiatal hernia. 15. History of GI bleed. STUDIES WHILE IN THE HOSPITAL: Transthoracic echocardiogram on 09/14/19, EF of 65% to 70%, no clinically significant diastolic dysfunction. There is turbulence and increased velocities in left ventricular outflow tract. The turbulence is new; however, the left ventricular function and valve structures are unchanged from previous echocardiogram in 2013. Chest x-ray on 09/14/19, chronic pleural changes in the right costophrenic angle. No definite pneumonia is identified. HISTORY OF PRESENT ILLNESS/HOSPITAL COURSE: Sergio Ahuja is a 59-year-old black male with past medical history significant for COPD with use of 2 L of oxygen with exertion, chronic pain, LLUVIA, hypertension, anxiety and depression, who presented to the emergency department on 09/14/19 for shortness of breath and increased sputum production. He additionally was noting to have paroxysmal nocturnal dyspnea. For further details, please see the history and physical written by Aliya Hansen, nurse practitioner. The echocardiogram did not show findings concerning for cardiac cause of his paroxysmal nocturnal dyspnea and therefore this is most likely related to his COPD exacerbation and increased sputum production. The patient was not hypoxic at admission nor during his hospital stay; however, he was severely dyspneic at rest initially with continuous productive cough; however, throughout his hospital stay, his prednisone was started as well as scheduled DuoNeb and new Singulair. The patient continued to show improvement during his hospital stay. By day of discharge, the patient's lung exam is much improved. He is no longer dyspneic at rest. He is minimally dyspneic with exertion, but not hypoxic as his oxygen saturation is 92% with exertion. He is overall safe for discharge. PHYSICAL EXAM ON THE DAY OF DISCHARGE: General: Obese black male, lying upright in hospital bed, appearing comfortable, in no acute distress. Eyes: PERRLA. Sclerae anicteric. ENT: Mucous membranes moist. Lungs: Faint expiratory wheezing in right middle lobe, otherwise clear to auscultation throughout. Somewhat diminished breath sounds. No use of accessory muscles with respirations. Cardio: Regular rate and rhythm without murmurs, rubs, or gallops. Abdomen: Soft, nontender, nondistended. No hepatosplenomegaly appreciated. Extremities: No clubbing, cyanosis, edema, or calf tenderness. Neuro: The patient is alert and oriented x3, no focal deficits. Able to move all extremities. No tremors. Psych: The patient is pleasant and cooperative. DISCHARGE PLAN: Diet: Regular unrestricted diet. Activity: The patient may return to normal activity as tolerated. He is advised to continue use of his 2 L of oxygen with exertion. The patient is to follow up with his primary care provider in 1 to 2 weeks. His new medications were discussed. He is advised to follow up with Dr. Benítez' s office as scheduled. He was prescribed formoterol nebulizer as he is on other nebulizers and this is his routine as well as financial cost. He was offered an Anoro trial in the past. I advised further discussion with this with Dr. Benítez at his next appointment. He is advised to continue use of nebulizers at home. He is advised to return to the emergency department if he is experiencing severe shortness of breath without improvement from DuoNeb or rescue inhaler, chest pain, fever, chills, or other concerning symptoms. The patient understands that it will take some time for him to return back to his baseline respiratory status, and it will take some time for his dyspnea on exertion to improve. DISCHARGE MEDICATIONS: New medications: 1. Prednisone 30 mg x3 days, then 20 mg x3 days, then 10 mg x3 days, then discontinue. 2. Mucinex 600 mg p.o. b.i.d. p.r.n. cough x7 days. 3. Singulair 10 mg p.o. daily. 4. Formoterol 20 mcg inhaled b.i.d. Continued home medications: 1. Ipratropium 0.5 mg nebulized solution inhaled t.i.d. 2. Morphine sulfate/naltrexone 50 mg/2 mg 1 cap p.o. b.i.d. 3. Lisinopril 20 mg p.o. daily. 4. Pregabalin 25 mg p.o. b.i.d. 5. Budesonide nebulizer 0.5 mg inhaled b.i.d. 6. Albuterol nebulized solution 2.5 mg inhaled q.i.d. p.r.n. shortness of breath/wheezing. 7. Flexeril 10 mg to 20 mg p.o. at bedtime p.r.n. muscle spasms. 8. Albuterol HFA inhaler 2 puffs inhaled q.4 hours p.r.n. shortness of breath/ wheezing. 9. Omeprazole 20 mg p.o. daily. 10. MiraLAX 17 g p.o. p.r.n. constipation. 11. Hydrocortisone 2.5% cream 1 application topically b.i.d. 12. Diazepam 5 mg p.o. p.r.n. situational anxiety for events. 13. Hydrochlorothiazide 25 mg p.o. daily. 14. Lipitor 20 mg p.o. at bedtime. 15. Atenolol 50 mg p.o. daily. 16. Amlodipine 5 mg p.o. daily. 17. Epinephrine 0.3 mg IM once p.r.n. anaphylaxis. 18. Xanax 1 mg p.o. q.i.d. p.r.n. anxiety. 19. Piedmont 5/325 mg p.o. q.4 hours p.r.n. pain. CONDITION ON DISCHARGE: Stable. DISPOSITION: Home. TIME SPENT: Approximately 40 minutes was spent on this discharge, approximately half that time was spent at the bedside evaluating the patient, discussing the plan of care as well as new medications. LICO WEBBER [id number]/[facility] #: [id number] AJITH
== END 2019-09-18 14:15 | disposition home health service (06) | DRG 191 ==
LOC: ED 14:31 → MED 20:52 → OBSVTOIN 09-15 11:00
PROVIDERS: ADMIT Internal Medicine; ATTEND Internal Medicine
DX: J44.1 Chronic obstructive pulmonary disease with (acute) exacerbation (principal); J96.11 Chronic respiratory failure with hypoxia; Z99.81 Dependence on supplemental oxygen; G47.33 Obstructive sleep apnea (adult) (pediatric); E66.9 Obesity, unspecified; K21.9 Gastro-esophageal reflux disease without esophagitis; I10 Essential (primary) hypertension; G89.29 Other chronic pain; E78.5 Hyperlipidemia, unspecified; F41.9 Anxiety disorder, unspecified; G43.909 Migraine, unspecified, not intractable, without status migrainosus; F32.9 Major depressive disorder, single episode, unspecified; K44.9 Diaphragmatic hernia without obstruction or gangrene; M19.90 Unspecified osteoarthritis, unspecified site; F10.11 Alcohol abuse, in remission; F15.11 Other stimulant abuse, in remission; Z96.642 Presence of left artificial hip joint; Z68.33 Body mass index [BMI] 33.0-33.9, adult; Z87.442 Personal history of urinary calculi; Z79.51 Long term (current) use of inhaled steroids; Z79.899 Other long term (current) drug therapy; Z88.8 Allergy status to other drugs, medicaments and biological substances; Z80.42 Family history of malignant neoplasm of prostate; Z84.89 Family history of other specified conditions; Z87.891 Personal history of nicotine dependence
CPT/HCPCS: 36415; 71046; 80048; 80053; 83605; 83880; 84484; 85025; 86140; 93005; 93306; 94640; 96374; 99284; A9270-GY; J1100; J1650; J3475; J7512

== ENCOUNTER 2021-08-03 15:01 | Inpatient (IN) ==
[2021-08-03] MEDS ORDERED: methylPREDNISolone 125 mg 2 ML VIAL IV ONE (17:08)
[2021-08-03] MEDS ORDERED: Albuterol/Ipratropium NEB.SOL (2.5/0.5 MG) 3 ML NEB.SOLN INH ONE ×2 (17:09→18:07)
[2021-08-03] MEDS ORDERED: Albuterol/Ipratropium NEB.SOL (2.5/0.5 MG) 3 ML NEB.SOLN ONE (17:09)
[2021-08-03 17:51] LABS: ABS Basophils 0.1 10^3/ul (0-0.2); ABS Eosinophils 0.6 10^3/ul (0-0.6); ABS Lymphocytes 2.9 10^3/ul (1.0-4.8); ABS Neutrophils 5.6 10^3/ul (1.5-7.7); Eosinophil % 5.6 %; Hematocrit 39 % (42-52); Hemoglobin 12.5 g/dL (14.0-18.0); Lymphocyte % 28.4 %; Mean Corpuscular HGB Conc 32 g/dL (31-36); Mean Corpuscular Hemoglobin 28 pg (27-31); Mean Corpuscular Volume 87 fL (80-94); Mean Platelet Volume 9.8 fL (7.4-10.4); Platelet Count 328 10^3/uL (150-450); Red Blood Count 4.53 10^6 /uL (4.18-5.48); Red Cell Distribution Width 14 % (10-15); White Blood Count 10.2 10^3/uL (3.5-10.8)
[2021-08-03 18:02] LABS: Albumin 4.1 g/dL (3.2-5.2); Albumin/Globulin Ratio 1.5 (1-3); Calcium 8.6 mg/dL (8.6-10.3); EGFR African American 94.4 (>60); Globulin 2.7 g/dL (2-4); Potassium 4.2 mmol/L (3.5-5.0); Total Bilirubin 0.3 mg/dL (0.2-1.0); Total Protein 6.8 g/dL (6.4-8.9)
[2021-08-03 18:16] LABS: Rapid COVID-19 Molecular Undetected (Undetected)
[2021-08-04] MEDS ORDERED: Albuterol/Ipratropium NEB.SOL (2.5/0.5 MG) 3 ML NEB.SOLN INH ONE (01:01)
[2021-08-04] MEDS ORDERED: Albuterol HFA INHALER 8 gm MDI INH ONE (01:05)
[2021-08-04] MEDS ORDERED: Albuterol 0.5% CONC CONTINUOUS NEB.SOL 5 mg/ml 20 ml BOT INH ONE (04:05)
[2021-08-04] MEDS ORDERED: Morphine ER 30 mg TAB ** extended release PO ONE (04:06)
[2021-08-04] MEDS ORDERED: HYDROcodone/ACETAMIN 5/325 mg TAB PO ONE (04:07)
[2021-08-04] MEDS ORDERED: Albuterol/Ipratropium NEB.SOL (2.5/0.5 MG) 3 ML NEB.SOLN INH PRN (06:18)
[2021-08-04] MEDS ORDERED: Azithromycin 500 mg/250 ml NS 500 MG/250 ML BAG IVPB ONE (06:19)
[2021-08-04 06:30] LABS: C Reactive Protein 13.78 mg/L (<8.01)
[2021-08-04] MEDS ORDERED: methylPREDNISolone SOD 40 mg/ml 1 ml VIAL IV SCH (07:30)
[2021-08-04] MEDS: Enoxaparin 40 MG/0.4 ML SYR SUBCUT SCH (11:20)
[2021-08-04] MEDS: Morphine ER 30 mg TAB ** extended release PO SCH ×3 (11:23→22:45)
[2021-08-04] MEDS: Albuterol/Ipratropium NEB.SOL (2.5/0.5 MG) 3 ML NEB.SOLN INH SCH ×3 (11:59→19:50)
[2021-08-04] MEDS: Mometasone/Formoter 200/5 MDI INH SCH ×2 (13:01→19:49)
[2021-08-05] MEDS: Albuterol/Ipratropium NEB.SOL (2.5/0.5 MG) 3 ML NEB.SOLN INH SCH ×4 (01:43→19:57)
[2021-08-05] MEDS: Mometasone/Formoter 200/5 MDI INH SCH ×2 (06:59→22:39)
[2021-08-05] MEDS: Enoxaparin 40 MG/0.4 ML SYR SUBCUT SCH (10:17)
[2021-08-05] MEDS: Morphine ER 30 mg TAB ** extended release PO SCH ×3 (10:18→20:03)
[2021-08-06] MEDS: Albuterol/Ipratropium NEB.SOL (2.5/0.5 MG) 3 ML NEB.SOLN INH SCH ×4 (00:47→22:52)
[2021-08-06] MEDS: Mometasone/Formoter 200/5 MDI INH SCH (07:34)
[2021-08-06] MEDS: Morphine ER 30 mg TAB ** extended release PO SCH ×3 (09:21→19:17)
[2021-08-06] MEDS: Enoxaparin 40 MG/0.4 ML SYR SUBCUT SCH (09:25)
[2021-08-07] MEDS: Albuterol/Ipratropium NEB.SOL (2.5/0.5 MG) 3 ML NEB.SOLN INH SCH ×4 (00:04→19:28)
[2021-08-07] MEDS: Morphine ER 30 mg TAB ** extended release PO SCH ×3 (08:51→22:19)
[2021-08-07] MEDS: Enoxaparin 40 MG/0.4 ML SYR SUBCUT SCH (08:51)
[2021-08-07] MEDS: cefTRIAXone 1 gm/50 mL NS BAG 1 GM/50 ML BAG IVPB SCH (22:17)
[2021-08-08] MEDS: Albuterol/Ipratropium NEB.SOL (2.5/0.5 MG) 3 ML NEB.SOLN INH SCH ×4 (00:59→19:09)
[2021-08-08] MEDS: Enoxaparin 40 MG/0.4 ML SYR SUBCUT SCH (08:05)
[2021-08-08] MEDS: Morphine ER 30 mg TAB ** extended release PO SCH ×3 (08:06→20:41)
[2021-08-08 14:29] LABS: ABS Basophils 0.1 10^3/ul (0-0.2); ABS Lymphocytes 1.1 10^3/ul (1.0-4.8); ABS Monocytes 0.4 10^3/ul (0-0.8); ABS Neutrophils 13.7 10^3/ul (1.5-7.7); Hematocrit 41 % (42-52); Hemoglobin 13.1 g/dL (14.0-18.0); Lymphocyte % 6.9 %; Mean Corpuscular HGB Conc 32 g/dL (31-36); Mean Corpuscular Hemoglobin 28 pg (27-31); Mean Corpuscular Volume 86 fL (80-94); Mean Platelet Volume 9.6 fL (7.4-10.4); Platelet Count 327 10^3/uL (150-450); Red Blood Count 4.76 10^6 /uL (4.18-5.48); Red Cell Distribution Width 14 % (10-15); White Blood Count 15.2 10^3/uL (3.5-10.8)
[2021-08-08 14:42] LABS: Calcium 9.1 mg/dL (8.6-10.3); EGFR African American 94.4 (>60); Potassium 4.4 mmol/L (3.5-5.0)
[2021-08-08] MEDS: methylPREDNISolone SOD 40 mg/ml 1 ml VIAL IV SCH (16:34)
[2021-08-08] MEDS: cefTRIAXone 1 gm/50 mL NS BAG 1 GM/50 ML BAG IVPB SCH (20:44)
[2021-08-09] MEDS: methylPREDNISolone SOD 40 mg/ml 1 ml VIAL IV SCH (01:08)
[2021-08-09] MEDS: Albuterol/Ipratropium NEB.SOL (2.5/0.5 MG) 3 ML NEB.SOLN INH SCH ×2 (01:28→07:31)
[2021-08-09] MEDS ORDERED: methylPREDNISolone SOD 40 mg/ml 1 ml VIAL IV SCH (09:00)
[2021-08-09] MEDS: Enoxaparin 40 MG/0.4 ML SYR SUBCUT SCH (09:13)
[2021-08-09] MEDS: Morphine ER 30 mg TAB ** extended release PO SCH ×3 (09:13→20:59)
[2021-08-09] MEDS ORDERED: Albuterol HFA INHALER 8 gm MDI INH PRN (10:29)
[2021-08-09] MEDS: SPIRIVA Respimat (tiotropium) 2.5 mcg/inh Inhaler INH SCH (13:53)
[2021-08-09] MEDS ORDERED: Albuterol/Ipratropium NEB.SOL (2.5/0.5 MG) 3 ML NEB.SOLN ONE (19:22)
[2021-08-10] MEDS: Albuterol 2.5mg/3 ml (0.083%) NEB.SOLN INH PRN (02:32)
[2021-08-10] MEDS: SPIRIVA Respimat (tiotropium) 2.5 mcg/inh Inhaler INH SCH (07:46)
[2021-08-10] MEDS ORDERED: Budesonide NEB 0.5 MG/2 ML NEB.SOLN INH SCH (09:00)
[2021-08-10] MEDS: Enoxaparin 40 MG/0.4 ML SYR SUBCUT SCH (09:34)
[2021-08-10] MEDS: Morphine ER 30 mg TAB ** extended release PO SCH ×3 (09:39→20:04)
[2021-08-10 10:10] LABS: ABS Basophils 0.1 10^3/ul (0-0.2); ABS Lymphocytes 3.6 10^3/ul (1.0-4.8); ABS Monocytes 1.4 10^3/ul (0-0.8); ABS Neutrophils 15.8 10^3/ul (1.5-7.7); Eosinophil % 0.1 %; Hematocrit 41 % (42-52); Hemoglobin 12.8 g/dL (14.0-18.0); Lymphocyte % 17.3 %; Mean Corpuscular HGB Conc 32 g/dL (31-36); Mean Corpuscular Hemoglobin 27 pg (27-31); Mean Corpuscular Volume 87 fL (80-94); Mean Platelet Volume 9.6 fL (7.4-10.4); Nucleated Red Blood Cells % 0.1; Platelet Count 320 10^3/uL (150-450); Red Blood Count 4.68 10^6 /uL (4.18-5.48); Red Cell Distribution Width 14 % (10-15)
[2021-08-10 11:05] LABS: Calcium 8.8 mg/dL (8.6-10.3); EGFR African American 109.8 (>60); EGFR Non-African American 90.7 (>60); Potassium 3.7 mmol/L (3.5-5.0)
[2021-08-11] MEDS: Albuterol 2.5mg/3 ml (0.083%) NEB.SOLN INH PRN (03:45)
[2021-08-11 05:24] LABS: ABS Basophils 0.1 10^3/ul (0-0.2); ABS Eosinophils 0.1 10^3/ul (0-0.6); ABS Lymphocytes 4.6 10^3/ul (1.0-4.8); ABS Monocytes 1.5 10^3/ul (0-0.8); ABS Neutrophils 10.7 10^3/ul (1.5-7.7); Eosinophil % 0.4 %; Hematocrit 42 % (42-52); Hemoglobin 13.6 g/dL (14.0-18.0); Lymphocyte % 27.1 %; Mean Corpuscular HGB Conc 32 g/dL (31-36); Mean Corpuscular Hemoglobin 28 pg (27-31); Mean Corpuscular Volume 86 fL (80-94); Mean Platelet Volume 9.6 fL (7.4-10.4); Platelet Count 325 10^3/uL (150-450); Red Blood Count 4.88 10^6 /uL (4.18-5.48); Red Cell Distribution Width 14 % (10-15); White Blood Count 16.9 10^3/uL (3.5-10.8)
[2021-08-11] MEDS: SPIRIVA Respimat (tiotropium) 2.5 mcg/inh Inhaler INH SCH (07:34)
[2021-08-11] MEDS: Enoxaparin 40 MG/0.4 ML SYR SUBCUT SCH (09:13)
[2021-08-11] MEDS ORDERED: Morphine ER 30 mg TAB ** extended release PO SCH (10:00)
[2021-08-11] MEDS ORDERED: Furosemide 20 mg/2 ml IV VIAL IV ONE (11:38)
[2021-08-11 11:44] VITALS: BP 116/71
[2021-08-11] MEDS ORDERED: Flu vaccine *QUAD* 2021-22* 0.5 ML SYRINGE IM ONE (11:49)
== END 2021-08-11 17:10 | disposition home or self-care (01) | DRG 191 ==
LOC: ED 15:01 → MED 15:01 → SUATTDRO 08-04 00:38
PROVIDERS: ADMIT Internal Medicine; ATTEND Internal Medicine

== ENCOUNTER 2023-12-24 20:05 | Inpatient (IN) ==
[2023-12-24 21:10] LABS: ABS Eosinophils 0.1 10^3/uL (0.0-0.5); ABS Lymphocytes 1.3 10^3/uL (1.0-4.8); ABS Neutrophils 19.5 10^3/uL (1.5-7.6); ABS Nucleated RBC 0.01 10^3/ul; Eosinophil % 0.2 %; Hematocrit 36.7 % (38-53); Hemoglobin 11.8 g/dL (13.2-16.3); Lymphocyte % 6.1 %; Mean Corpuscular Hemoglobin 26.6 pg (27-33); Mean Corpuscular Volume 82.9 fL (80-97); Mean Platelet Volume 9.1 fL (7.5-11.2); Platelet Count 324 10^3/uL (150-450); Red Blood Count 4.43 10^6/uL (4.06-5.63); Red Cell Distribution Width 15.5 % (12-17); White Blood Count 21.9 10^3/uL (3.6-10.2)
[2023-12-24 21:27] LABS: ALT 48 U/L (7-52); AST 40 U/L (13-39); Albumin 3.8 g/dL (3.2-5.2); Albumin/Globulin Ratio 1.5 (1-3); Alkaline Phosphatase 124 U/L (35-149); Anion Gap 6 mmol/L (2-16); Blood Urea Nitrogen 11 mg/dL (6-24); C Reactive Protein 20.01 mg/L (<8.01); CO2 Carbon Dioxide 33 mmol/L (22-32); Calcium 9.3 mg/dL (8.6-10.3); Chloride 101 mmol/L (101-111); Creatinine, Serum 0.61 mg/dL (0.67-1.17); Globulin 2.6 g/dL (2-4); Glucose 229 mg/dL (70-100); Potassium 3.9 mmol/L (3.5-5.0); Sodium 140 mmol/L (135-145); Total Bilirubin 0.2 mg/dL (0.2-1.0); Total Protein 6.4 g/dL (6.4-8.9); eGFR CKD-EPI 107.9 (>60)
[2023-12-24 21:33] LABS: High Sens Troponin Baseline 12 pg/mL (<20)
[2023-12-24 22:22] LABS: High Sensitivity Troponin 1 Hr 9 pg/mL (<20)
[2023-12-24] MEDS ORDERED: cefTRIAXone VIAL 1,000 MG VIAL IVPB ONE (22:41)
[2023-12-24] MEDS: cefTRIAXone 2 gm/50 mL D5W 2 GM/50 ML BAG IV ONE (23:13)
[2023-12-24] MEDS: Dexamethasone IV 4 MG/ML VIAL 1 ml VIAL IV SLOW PU ONE (23:14)
[2023-12-24] MEDS: Albuterol/Ipratropium NEB.SOL (2.5/0.5 MG) 3 ML NEB.SOLN INH ONE (23:14)
[2023-12-24] MEDS: NS 0.9% 1000 ml BAG 1,000 ML IV ONE (23:14)
[2023-12-24] MEDS: Azithromycin 500 mg/250 ml NS 500 MG/250 ML BAG IVPB ONE (23:14)
[2023-12-25] MEDS ORDERED: HYDROcodone/Acetamin 10/325 TAB (NF) PO PRN (01:44)
[2023-12-25 04:34] LABS: Alcohol, S < 13 mg/dL (<13)
[2023-12-25] MEDS: Albuterol/Ipratropium NEB.SOL (2.5/0.5 MG) 3 ML NEB.SOLN INH SCH ×2 (07:25→12:02)
[2023-12-25] MEDS: Lactated Ringers 1000 ml BAG 1,000 ML IV ONE (07:42)
[2023-12-25 07:55] LABS: ABS Basophils 0.1 10^3/uL (0.0-0.1); ABS Monocytes 0.4 10^3/uL (0.0-1.1); ABS Neutrophils 17.4 10^3/uL (1.5-7.6); ABS Nucleated RBC 0.01 10^3/ul; Hematocrit 34.1 % (38-53); Hemoglobin 10.8 g/dL (13.2-16.3); Lymphocyte % 5.5 %; Mean Corpuscular Hemoglobin 26.2 pg (27-33); Mean Corpuscular Hgb Conc 31.7 g/dL (31-36); Mean Corpuscular Volume 82.7 fL (80-97); Nucleated Red Blood Cells % 0.1 %/100WBC (0.0-0.8); Platelet Count 309 10^3/uL (150-450); Red Blood Count 4.13 10^6/uL (4.06-5.63); Red Cell Distribution Width 15.6 % (12-17); White Blood Count 18.9 10^3/uL (3.6-10.2)
[2023-12-25 08:07] LABS: Calcium 8.8 mg/dL (8.6-10.3); Creatinine, Serum 0.81 mg/dL (0.67-1.17); Potassium 4.2 mmol/L (3.5-5.0); eGFR CKD-EPI 99.1 (>60)
[2023-12-25] MEDS: Morphine ER 30 mg TAB ** extended release PO SCH (08:55)
[2023-12-25] MEDS ORDERED: Morphine 15 mg TAB (NF) PO SCH (09:00)
[2023-12-25] MEDS ORDERED: Albuterol/Ipratropium NEB.SOL (2.5/0.5 MG) 3 ML NEB.SOLN INH SCH (10:00)
[2023-12-25] MEDS ORDERED: Albuterol 2.5mg/3 ml (0.083%) NEB.SOLN INH PRN (10:19)
[2023-12-25] MEDS: Albuterol 2.5mg/3 ml (0.083%) NEB.SOLN INH SCH (11:59)
[2023-12-25] MEDS: Enoxaparin 40 MG/0.4 ML SYR SUBCUT SCH (15:31)
[2023-12-25 21:12] LABS: Urine Appearance Clear; Urine Bilirubin Negative (Negative); Urine Blood Negative (Negative); Urine Color Colorless; Urine Glucose 1+ (>=70 mg/dL) (Negative); Urine Ketones Negative (Negative); Urine Nitrite Negative (Negative); Urine Protein Negative (Negative); Urine Specific Gravity 1.009 (1.002-1.030); Urine Urobilinogen Negative (Negative)
[2023-12-25] MEDS: cefTRIAXone 2 gm/50 mL D5W 2 GM/50 ML BAG IV SCH (22:25)
[2023-12-25] MEDS: Azithromycin 500 mg/250 ml NS 500 MG/250 ML BAG IVPB SCH (23:33)
[2023-12-26] MEDS ORDERED: Albuterol HFA INHALER 8 gm MDI INH PRN (04:06)
[2023-12-26 06:41] LABS: Hematocrit 32.2 % (38-53); Hemoglobin 10.2 g/dL (13.2-16.3); Mean Corpuscular Hgb Conc 31.7 g/dL (31-36); Mean Corpuscular Volume 82.1 fL (80-97); Mean Platelet Volume 9.3 fL (7.5-11.2); Platelet Count 310 10^3/uL (150-450); Red Blood Count 3.92 10^6/uL (4.06-5.63); Red Cell Distribution Width 15.6 % (12-17)
[2023-12-26 06:58] LABS: Calcium 8.7 mg/dL (8.6-10.3); Creatinine, Serum 0.7 mg/dL (0.67-1.17); Magnesium 1.7 mg/dL (1.9-2.7); Potassium 3.7 mmol/L (3.5-5.0); eGFR CKD-EPI 103.5 (>60)
[2023-12-26 07:09] LABS: T4, Total 4.94 mcg/dL (6.09-12.23)
[2023-12-26] MEDS: Tiotropium Brom/Olodaterol MDI (ACUTE) INH SCH (07:10)
[2023-12-26 08:37] LABS: ABS Basophils 0.2 10^3/uL (0.0-0.1); ABS Lymphocytes 3.3 10^3/uL (1.0-4.8); ABS Monocytes 1.2 10^3/uL (0.0-1.1); ABS Neutrophils 20.3 10^3/uL (1.5-7.6); ABS Nucleated RBC 0.02 10^3/ul; Lymphocyte % 13.1 %; Nucleated Red Blood Cells % 0.1 %/100WBC (0.0-0.8)
[2023-12-26] MEDS: Levalbuterol 1.25MG/0.5ML NEB.SOL INH PRN (23:26)
[2023-12-27 06:31] LABS: Hemoglobin 10.7 g/dL (13.2-16.3); Mean Corpuscular Hemoglobin 25.9 pg (27-33); Mean Corpuscular Hgb Conc 31.5 g/dL (31-36); Mean Platelet Volume 9.2 fL (7.5-11.2); Platelet Count 324 10^3/uL (150-450); Red Blood Count 4.15 10^6/uL (4.06-5.63); Red Cell Distribution Width 15.6 % (12-17); White Blood Count 19.5 10^3/uL (3.6-10.2)
[2023-12-27 06:49] LABS: Creatinine, Serum 0.62 mg/dL (0.67-1.17); Magnesium 1.9 mg/dL (1.9-2.7); Potassium 3.7 mmol/L (3.5-5.0); eGFR CKD-EPI 107.4 (>60)
[2023-12-27 07:03] LABS: ABS Eosinophils 0.1 10^3/uL (0.0-0.5); ABS Lymphocytes 3.8 10^3/uL (1.0-4.8); ABS Monocytes 1.6 10^3/uL (0.0-1.1); ABS Neutrophils 14.1 10^3/uL (1.5-7.6); ABS Nucleated RBC 0.04 10^3/ul; Eosinophil % 0.3 %; Lymphocyte % 19.3 %; Nucleated Red Blood Cells % 0.2 %/100WBC (0.0-0.8); RBC Morphology Normal (Normal)
[2023-12-27] MEDS: HYDROcodone/Acetamin 10/325 TAB (NF) PO PRN (08:56)
[2023-12-27] MEDS: Levalbuterol HFA INHALER MDI INH SCH (12:55)
[2023-12-27] MEDS ORDERED: Levalbuterol HFA INHALER MDI INH PRN (17:33)
[2023-12-28 06:43] LABS: ABS Basophils 0.1 10^3/uL (0.0-0.1); ABS Eosinophils 0.1 10^3/uL (0.0-0.5); ABS Monocytes 1.3 10^3/uL (0.0-1.1); ABS Neutrophils 13.6 10^3/uL (1.5-7.6); ABS Nucleated RBC 0.05 10^3/ul; Eosinophil % 0.4 %; Hematocrit 33.6 % (38-53); Hemoglobin 10.6 g/dL (13.2-16.3); Lymphocyte % 20.9 %; Mean Corpuscular Hgb Conc 31.6 g/dL (31-36); Mean Corpuscular Volume 82.4 fL (80-97); Mean Platelet Volume 9.1 fL (7.5-11.2); Nucleated Red Blood Cells % 0.3 %/100WBC (0.0-0.8); Platelet Count 317 10^3/uL (150-450); Red Blood Count 4.08 10^6/uL (4.06-5.63); Red Cell Distribution Width 15.2 % (12-17)
[2023-12-28 07:06] LABS: Calcium 8.7 mg/dL (8.6-10.3); Creatinine, Serum 0.74 mg/dL (0.67-1.17); Potassium 3.9 mmol/L (3.5-5.0); eGFR CKD-EPI 101.8 (>60)
[2023-12-28 10:27] VITALS: BP 129/79
== END 2023-12-28 16:28 | disposition home or self-care (01) | DRG 192 ==
LOC: ED 20:05 → EDHOLD 23:22 → SUATTDRO 23:22 → MEDTELE 12-25 00:02
PROVIDERS: ADMIT Internal Medicine; ATTEND Student in an Organized Health Care Education/Training Program

== ENCOUNTER 2024-01-11 11:44 | Inpatient (IN) ==
[2024-01-11 12:30] LABS: ABS Basophils 0.1 10^3/uL (0.0-0.1); ABS Lymphocytes 0.9 10^3/uL (1.0-4.8); ABS Monocytes 1.1 10^3/uL (0.0-1.1); ABS Neutrophils 16.8 10^3/uL (1.5-7.6); ABS Nucleated RBC 0.01 10^3/ul; Eosinophil % 0.2 %; Hematocrit 32.1 % (38-53); Hemoglobin 10.3 g/dL (13.2-16.3); Lymphocyte % 4.6 %; Mean Corpuscular Hemoglobin 25.8 pg (27-33); Mean Corpuscular Hgb Conc 32.1 g/dL (31-36); Mean Corpuscular Volume 80.6 fL (80-97); Mean Platelet Volume 8.6 fL (7.5-11.2); Platelet Count 290 10^3/uL (150-450); Red Blood Count 3.98 10^6/uL (4.06-5.63); White Blood Count 18.8 10^3/uL (3.6-10.2)
[2024-01-11 12:41] LABS: INR 1.2 (0.83-1.13)
[2024-01-11] MEDS: methylPREDNISolone SOD SUCC 125 mg 2 ML VIAL IV ONE (12:53)
[2024-01-11] MEDS: Cefepime 2 GM in Dextrose 2 GM/50 ML BAG IV ONE (12:55)
[2024-01-11] MEDS: NS 0.9% 1000 ml BAG 1,000 ML IV ONE (12:57)
[2024-01-11 13:13] LABS: Albumin 3.9 g/dL (3.2-5.2); Albumin/Globulin Ratio 1.9 (1-3); C Reactive Protein 75.88 mg/L (<8.01); Calcium 8.9 mg/dL (8.6-10.3); Creatinine, Serum 0.79 mg/dL (0.67-1.17); Globulin 2.1 g/dL (2-4); Potassium 3.7 mmol/L (3.5-5.0); Total Bilirubin 0.6 mg/dL (0.2-1.0); eGFR CKD-EPI 99.8 (>60)
[2024-01-11] MEDS: Levalbuterol 1.25MG/0.5ML NEB.SOL INH ONE (13:23)
[2024-01-11] MEDS: Vancomycin 1,750 MG in NS 0.9% 500 ml BAG 500 ML IVPB ONE (13:44)
[2024-01-11 14:03] LABS: Urine Appearance Clear; Urine Bilirubin Negative (Negative); Urine Blood Negative (Negative); Urine Color Light-Yellow; Urine Glucose Negative (Negative); Urine Ketones Negative (Negative); Urine Nitrite Negative (Negative); Urine Protein Negative (Negative); Urine Specific Gravity 1.011 (1.002-1.030); Urine Urobilinogen Negative (Negative)
[2024-01-11 14:13] LABS: High Sensitivity Troponin 1 Hr 11 pg/mL (<20)
[2024-01-11 16:22] LABS: Venous Bicarbonate HCO3 28.7 mmol/L (24-28)
[2024-01-11] MEDS ORDERED: Al Hydrox/Mg Hydrox/Simet LIQ 30 ML UDC PO PRN (16:58)
[2024-01-11] MEDS ORDERED: Polyethylene Glycol 3350 17 GM PACKET PO PRN (16:58)
[2024-01-11] MEDS: Albuterol/Ipratropium NEB.SOL (2.5/0.5 MG) 3 ML NEB.SOLN INH ONE (17:02)
[2024-01-11] MEDS: methylPREDNISolone SOD SUCC 40 mg/ml 1 ml VIAL IV SCH (18:11)
[2024-01-11] MEDS: Furosemide 20 mg/2 ml IV VIAL IV SLOW PU ONE (18:11)
[2024-01-11] MEDS: Albuterol/Ipratropium NEB.SOL (2.5/0.5 MG) 3 ML NEB.SOLN INH SCH (19:19)
[2024-01-11] MEDS: Morphine ER 30 mg TAB ** extended release PO SCH (20:59)
[2024-01-11] MEDS: CMC:Meloxicam 7.5 mg TAB (NF) PO SCH (21:00)
[2024-01-11] MEDS: Morphine ORAL.SOLN 10 mg 2 mg/ml UDC 5 ml (10 mg) PO SCH (21:01)
[2024-01-11] MEDS: DOXYcycline 100 MG in NS 0.9% 250 ml 250 ML IVPB SCH (21:01)
[2024-01-11] MEDS: Enoxaparin 40 MG/0.4 ML SYR SUBCUT SCH (21:01)
[2024-01-12] MEDS: Albuterol 2.5mg/3 ml (0.083%) NEB.SOLN INH PRN (04:15)
[2024-01-12 06:38] LABS: ABS Lymphocytes 0.4 10^3/uL (1.0-4.8); ABS Monocytes 0.4 10^3/uL (0.0-1.1); ABS Neutrophils 15.6 10^3/uL (1.5-7.6); ABS Nucleated RBC 0.01 10^3/ul; Hemoglobin 10.2 g/dL (13.2-16.3); Lymphocyte % 2.6 %; Mean Corpuscular Hgb Conc 31.8 g/dL (31-36); Mean Corpuscular Volume 81.7 fL (80-97); Mean Platelet Volume 8.8 fL (7.5-11.2); Nucleated Red Blood Cells % 0.1 %/100WBC (0.0-0.8); Platelet Count 316 10^3/uL (150-450); Red Blood Count 3.91 10^6/uL (4.06-5.63); Red Cell Distribution Width 16.4 % (12-17); White Blood Count 16.4 10^3/uL (3.6-10.2)
[2024-01-12 07:20] LABS: Creatinine, Serum 0.92 mg/dL (0.67-1.17); Potassium 4.4 mmol/L (3.5-5.0); eGFR CKD-EPI 93.5 (>60)
[2024-01-13] MEDS: HYDROcodone/Acetamin 10/325 TAB (NF) PO PRN (02:50)
[2024-01-13 07:00] LABS: Hematocrit 32.3 % (38-53); Mean Corpuscular Hemoglobin 25.3 pg (27-33); Mean Corpuscular Hgb Conc 30.9 g/dL (31-36); Mean Corpuscular Volume 81.9 fL (80-97); Mean Platelet Volume 9.4 fL (7.5-11.2); Platelet Count 328 10^3/uL (150-450); Red Blood Count 3.95 10^6/uL (4.06-5.63); Red Cell Distribution Width 16.4 % (12-17); White Blood Count 29.7 10^3/uL (3.6-10.2)
[2024-01-13 07:12] LABS: Calcium 9.6 mg/dL (8.6-10.3); Creatinine, Serum 0.93 mg/dL (0.67-1.17); Potassium 5.1 mmol/L (3.5-5.0); eGFR CKD-EPI 92.3 (>60)
[2024-01-13 07:21] LABS: ABS Basophils 0.1 10^3/uL (0.0-0.1); ABS Lymphocytes 0.7 10^3/uL (1.0-4.8); ABS Monocytes 1.1 10^3/uL (0.0-1.1); ABS Neutrophils 27.8 10^3/uL (1.5-7.6); ABS Nucleated RBC 0.04 10^3/ul; Lymphocyte % 2.5 %; Nucleated Red Blood Cells % 0.1 %/100WBC (0.0-0.8)
[2024-01-13] MEDS: methylPREDNISolone SOD SUCC 40 mg/ml 1 ml VIAL IV SCH ×2 (12:14→13:50)
[2024-01-14 06:13] LABS: Hematocrit 28.5 % (38-53); Mean Corpuscular Hemoglobin 25.8 pg (27-33); Mean Corpuscular Hgb Conc 31.6 g/dL (31-36); Mean Corpuscular Volume 81.5 fL (80-97); Mean Platelet Volume 8.9 fL (7.5-11.2); Platelet Count 304 10^3/uL (150-450); Red Cell Distribution Width 16.4 % (12-17); White Blood Count 23.7 10^3/uL (3.6-10.2)
[2024-01-14 06:27] LABS: ABS Lymphocytes 0.8 10^3/uL (1.0-4.8); ABS Neutrophils 21.9 10^3/uL (1.5-7.6); ABS Nucleated RBC 0.08 10^3/ul; Lymphocyte % 3.3 %; Nucleated Red Blood Cells % 0.3 %/100WBC (0.0-0.8)
[2024-01-14 06:33] LABS: Calcium 8.9 mg/dL (8.6-10.3); Creatinine, Serum 0.72 mg/dL (0.67-1.17); Potassium 4.9 mmol/L (3.5-5.0); eGFR CKD-EPI 102.7 (>60)
[2024-01-14] MEDS: methylPREDNISolone SOD SUCC 125 mg 2 ML VIAL IV ONE (13:30)
[2024-01-14] MEDS: Albuterol/Ipratropium NEB.SOL (2.5/0.5 MG) 3 ML NEB.SOLN INH SCH (20:28)
[2024-01-14] MEDS: methylPREDNISolone SOD SUCC 40 mg/ml 1 ml VIAL IV SCH (21:42)
[2024-01-15] MEDS: Morphine ER 30 mg TAB ** extended release PO SCH (23:13)
[2024-01-16 11:26] LABS: ABS Basophils 0.1 10^3/uL (0.0-0.1); ABS Lymphocytes 1.4 10^3/uL (1.0-4.8); ABS Monocytes 1.2 10^3/uL (0.0-1.1); ABS Neutrophils 16.1 10^3/uL (1.5-7.6); ABS Nucleated RBC 0.05 10^3/ul; Hematocrit 30.1 % (38-53); Hemoglobin 9.6 g/dL (13.2-16.3); Lymphocyte % 7.3 %; Mean Corpuscular Hemoglobin 25.4 pg (27-33); Mean Corpuscular Hgb Conc 31.7 g/dL (31-36); Mean Corpuscular Volume 80.1 fL (80-97); Mean Platelet Volume 8.9 fL (7.5-11.2); Nucleated Red Blood Cells % 0.2 %/100WBC (0.0-0.8); Platelet Count 356 10^3/uL (150-450); Red Blood Count 3.76 10^6/uL (4.06-5.63); Red Cell Distribution Width 16.4 % (12-17); White Blood Count 18.7 10^3/uL (3.6-10.2)
[2024-01-16 12:08] LABS: Calcium 9.5 mg/dL (8.6-10.3); Creatinine, Serum 0.63 mg/dL (0.67-1.17); Potassium 4.7 mmol/L (3.5-5.0); eGFR CKD-EPI 106.9 (>60)
[2024-01-17] MEDS: methylPREDNISolone SOD SUCC 40 mg/ml 1 ml VIAL IV SCH ×2 (11:27→20:56)
[2024-01-18] MEDS: methylPREDNISolone SOD SUCC 40 mg/ml 1 ml VIAL IV ONE (11:17)
[2024-01-18] MEDS: FLUTICAS/UMECLI/VILANT 100-62.5-25 MDI (NF) INH SCH (11:29)
[2024-01-18] MEDS ORDERED: Acetylcysteine ORAL SOL 200 mg/ml 30 ml VIAL PO PRN (20:45)
[2024-01-18] MEDS ORDERED: Acetylcysteine INH SOL (RT) 200 MG/ML 4 ML VIAL INH PRN (22:03)
[2024-01-19 11:48] LABS: Hematocrit 33.4 % (38-53); Hemoglobin 10.5 g/dL (13.2-16.3); Mean Corpuscular Hemoglobin 25.1 pg (27-33); Mean Corpuscular Hgb Conc 31.3 g/dL (31-36); Mean Platelet Volume 9.3 fL (7.5-11.2); Platelet Count 413 10^3/uL (150-450); Red Blood Count 4.18 10^6/uL (4.06-5.63); Red Cell Distribution Width 16.2 % (12-17); White Blood Count 25.8 10^3/uL (3.6-10.2)
[2024-01-19 12:10] LABS: Calcium 10.2 mg/dL (8.6-10.3); Creatinine, Serum 0.83 mg/dL (0.67-1.17); Magnesium 2.4 mg/dL (1.9-2.7); Potassium 4.7 mmol/L (3.5-5.0); eGFR CKD-EPI 98.3 (>60)
[2024-01-19 12:28] LABS: ABS Lymphocytes 1.3 10^3/uL (1.0-4.8); ABS Monocytes 1.6 10^3/uL (0.0-1.1); ABS Neutrophils 22.9 10^3/uL (1.5-7.6); ABS Nucleated RBC 0.11 10^3/ul; Acanthocytes 1+; Hypochromasia 2+; Lymphocyte % 5.1 %; Nucleated Red Blood Cells % 0.4 %/100WBC (0.0-0.8); Polychromasia 1+
[2024-01-19] MEDS: guaiFENesin 100 mg/5 ml LIQ unit dose cup PO SCH (14:23)
[2024-01-19] MEDS ORDERED: Dextrose 50% Syringe 50 ml 25 GM/50 ML SYRINGE IV PUSH PRN (16:12)
[2024-01-19 18:11] LABS: Glucose Confirmatory 409 mg/dL (70-100)
[2024-01-21] MEDS: Albuterol 2.5mg/3 ml (0.083%) NEB.SOLN INH SCH (11:47)
[2024-01-21 14:11] VITALS: BP 121/84
== END 2024-01-21 16:15 | disposition home or self-care (01) | DRG 193 ==
LOC: EDHOLD 11:44 → ED 11:44 → MEDTELE 16:39 → SUATTDRO 01-12 16:00
PROVIDERS: ADMIT Internal Medicine; ATTEND Internal Medicine